=== PATIENT | male | born 1945 | race Caucasian/White ===

== ENCOUNTER 2018-11-13 21:52 | Inpatient (IN) ==
[2018-11-13] MEDS ORDERED: ONDANSETRON INJ 2 MG/ML 2 ML VIAL IV STA (22:36)
[2018-11-13] MEDS ORDERED: SODIUM CHLORIDE 0.9% 1000ML 1,000 ML IV SCH (22:45)
[2018-11-13 22:54] LABS: Basophils # (auto) 0.02 K/uL (0-0.2); Basophils % (auto) 0.3 %; Eosinophils # (auto) 0.04 K/uL (0-0.5); Eosinophils % (auto) 0.6 %; Hematocrit (blood only) 34.4 % (42-52); Hemoglobin 11.9 g/dL (14.0-18.0); Immature Granulocytes # (auto) 0.05 K/uL (0.00-0.02); Immature Granulocytes % (auto) 0.8 %; Lymphocytes # (auto) 0.36 K/uL (1.2-3.4); Lymphocytes % (auto) 5.4 %; Mean Corpuscular Hgb Conc 34.6 g/dL (32-36); Mean Corpuscular Volume 88.7 fL (80-100); Mean Platelet Volume 10.3 fL (7.4-10.4); Monocytes # (auto) 0.17 K/uL (0.11-0.59); Monocytes % (auto) 2.6 %; Neutrophils # (auto) 6.02 K/uL (1.4-6.5); Neutrophils % (auto) 90.3 %; Platelet Count 351 K/uL (130-400); RDW Coefficient of Variation 13.7 % (11.5-14.5); RDW Standard Deviation 44.8 fL (36.4-46.3); Red Blood Count 3.88 M/uL (4.7-6.1); White Blood Count 6.66 K/uL (4.8-10.8)
[2018-11-13 23:11] LABS: Alanine Aminotransferase 53 U/L (12-78); Albumin Level 2.5 gm/dl (3.4-5.0); Aspartate Aminotransferase 60 U/L (15-37); BUN Creatinine Ratio 15.2 (10-20); Blood Urea Nitrogen 15 mg/dl (7-18); Carbon Dioxide 25 mmol/L (21-32); Chloride 94 mmol/L (98-107); Creatinine Clr Calc Pharmacy 63.8 ml/min; Est GFR (African American) 84.5; Est GFR (Non-African American) 72.9; Glucose 172 mg/dl (70-99); Magnesium 2.1 mg/dl (1.8-2.4); Potassium 3.1 mmol/L (3.5-5.1); Sodium 129 mmol/L (136-145)
[2018-11-13 23:16] LABS: Albumin Globulin Ratio 0.6 (0.9-2); Alkaline Phosphatase 170 U/L (45-117); Bilirubin,Total 0.7 mg/dl (0.2-1); Globulin 4.4 gm/dl (2.5-4.0); Total Protein 6.9 gm/dl (6.4-8.2); Troponin I < 0.015 ng/ml (0-0.045)
[2018-11-13 23:41] LABS: Appearance Urine Clear (Clear); Bacteria Urine Automated Negative (Negative); Bilirubin Urine Negative (Negative); Color Urine Dark Yellow; Glucose Urine UA Negative (Negative); Ketones Urine Trace (Negative); Leukocyte Esterase Urine Negative (Negative); Nitrite Urine Negative (Negative); Protein Urine 1+ (Negative); Specific Gravity Urine 1.021 (1.000-1.030); Urobilinogen Urine Positive (Negative)
[2018-11-13] MEDS ORDERED: IOVERSOL 100ml IV PRN (23:59)
[2018-11-14 00:16] LABS: Influenza A virus by PCR Neg for Influ A (Neg); Influenza B virus by PCR Neg for Influ B (Neg)
[2018-11-14] MEDS ORDERED: SODIUM CHLORIDE 0.9% 1000ML 1,000 ML IV STA (00:43)
--- NOTE | 2018-11-14 00:51 | Emergency Department Note ---
Entered by Annel Robert acting as a scribe for Yoni Nieves MD History of Present Illness General Chief complaint: Abdominal Pain Stated complaint: pain in Ribs/back, loss of balance Time Seen by Provider: 11/13/18 22:33 Source: patient Mode of arrival: ambulatory Limitations: no limitations History of Present Illness Provider complaint: Abdominal pain Onset (ago): day(s) (a couple of days ago) Location: abdomen (upper) Radiation: non-radiation Pain Consistency: + other (worsening) Quality: + other (pain) Relieved By: + none Associated symptoms: + fever/chills, + nausea/vomiting and + other (Additional symptoms: back pain. Denies: congestion, burning urination, alcohol withdrawal symptoms); no cough The patient is a 72 year old male with a history of a prostatectomy 2 years ago who presents to the Emergency Room with complaints of worsening upper abdominal pain starting a couple of days ago. The patient reports that his pain feels like "food is stuck" in his upper abdomen. He states that his abdominal pain has been accompanied by nausea, a low-grade fever, chills, and back pain, but no cough, congestion, and burning urination. He also denies any recent sick contact. He notes that his last bowel movement was 2 days ago and that he has not eaten much today. He further reports that he normally drinks beer and wine every day but claims that he has not consumed alcohol in the past week and has not experienced any withdrawal symptoms. The patient states that he takes 80 mg Aspirin daily. He denies a history of heart attacks and abdominal surgeries. Home Medications Home Medications Medication Instructions Recorded Confirmed Type aspirin 81 mg PO DAILY 11/13/18 11/13/18 History fluticasone-salmeterol [Advair 1 puff INHALATION BID 11/13/18 11/13/18 History Diskus] ipratropium-albuterol [Combivent 1 puff INHALATION DIRECTED 11/13/18 History Respimat] rosuvastatin 10 mg PO DAILY 11/13/18 11/13/18 History Allergies Allergy/AdvReac Type Severity Reaction Status Date / Time No Known Allergies Allergy Unverified 11/13/18 22:59 Past Med/Surg History Surgical History S/P prostatectomy Social History marital status: Current Living Situation: Spouse current occupational status: retired Other Information That Helps Us Care for You: No Feels Safe at Home: Yes Safety Concerns: Feels Safe At This Time Smoking Status: Former smoker Hx Alcohol Use: Yes Alcohol type: beer and wine Alcohol Intake Frequency: 3 or more drinks per day Hx Substance Use: No Beliefs That Will Affect Care: None Preferred Language: Belarusian Communication Ability: Effective Video Effects Editor Required: No Review of Systems See HPI for pertinent positives & negatives. and A total of 10 systems reviewed and were otherwise negative Physical Exam Vital Signs Vital Signs - 24 hr 11/13/18 21:55 11/13/18 22:24 11/13/18 23:26 Temperature 37.8 C H 37.8 C H Temperature Source Oral Oral Sepsis Action Taken by Nursing No Action Required Pulse Rate 117 H 100 H Pulse Rate [Left Finger] 106 H 100 H Pulse Rhythm Regular Pulse Rhythm [Left Finger] Regular Pulse Strength [Left Finger] Normal Respiratory Rate 20 20 20 Respiratory Effort / Characteristics Non-Labored Non-Labored Non-Labored Spontaneous Respiratory Depth Normal Normal Normal Respiratory Pattern Regular Regular Blood Pressure 135/75 Blood Pressure [Left Arm] 146/73 H 135/76 Blood Pressure Mean 95 Blood Pressure Mean [Left Arm] 97 95 Blood Pressure Position [Left Arm] Sitting Pulse Oximetry 95 91 100 Oxygen Delivery Method Room Air Room Air Room Air 11/14/18 00:30 11/14/18 01:21 11/14/18 03:16 Temperature 37.4 C 36.8 C Temperature Source Oral Oral Sepsis Action Taken by Nursing Pulse Rate Pulse Rate [Left Finger] 94 H 89 80 Pulse Rhythm Pulse Rhythm [Left Finger] Regular Regular Regular Pulse Strength [Left Finger] Normal Normal Normal Respiratory Rate 20 20 18 Respiratory Effort / Characteristics Non-Labored Spontaneous Non-Labored Spontaneous Non-Labored Spontaneous Respiratory Depth Normal Normal Normal Respiratory Pattern Regular Regular Blood Pressure Blood Pressure [Left Arm] 131/66 115/67 109/57 L Blood Pressure Mean Blood Pressure Mean [Left Arm] 87 83 74 Blood Pressure Position [Left Arm] Lying Lying Pulse Oximetry 93 93 93 Oxygen Delivery Method Room Air Room Air Room Air 11/14/18 03:45 Temperature 36.6 C Temperature Source Oral Sepsis Action Taken by Nursing Pulse Rate Pulse Rate [Left Finger] 83 Pulse Rhythm Pulse Rhythm [Left Finger] Regular Pulse Strength [Left Finger] Normal Respiratory Rate 16 Respiratory Effort / Characteristics Respiratory Depth Normal Respiratory Pattern Blood Pressure Blood Pressure [Left Arm] 123/67 Blood Pressure Mean Blood Pressure Mean [Left Arm] 85 Blood Pressure Position [Left Arm] Lying Pulse Oximetry 92 Oxygen Delivery Method Room Air GENERAL: Awake, alert, fatigued, uncomfortable-appearing, in no distress HENT: Normocephalic, atraumatic. Oropharynx with dry mucous membranes and otherwise unremarkable. EYES: Normal conjunctiva. Sclera non-icteric. NECK: Supple. No nuchal rigidity. FROM. No JVD. RESPIRATORY: Clear to auscultation. CARDIAC: Tachycardic rate, normal rhythm. Extremities warm and well perfused. Pulses equal. ABDOMEN: Soft, non-distended. Mild epigastric/RUQ tenderness. +Lyons's sign. No masses. RECTAL: Deferred. MUSCULOSKELETAL: Chest examination reveals no tenderness. The back is symmetrical on inspection without obvious abnormality. There is no CVA tenderness to palpation. No joint edema. LOWER EXTREMITIES: Calves are equal size bilaterally and non-tender. No edema. No discoloration. NEURO: Normal sensorium. No sensory or motor deficits noted. SKIN: No rash or jaundice noted. Course 2305: Past medical records reviewed. The patient was evaluated in room C8, and a complete history and physical examination were performed. 0125: I reviewed the patient's case with Trace Renner. Given the patient's age, Dr. Villarreal suggests admission to medicine. Dr. Villarreal will evaluate the patient for likely cholecystitis in the morning. 0129: I reviewed the patient's case with Chetan Kirkpatrick. Dr. Mancia will evaluate the patient for further management. Consultations Consultation #1: I reviewed the patient's case with Trace Renner. Given the patient's age, Dr. Villarreal suggests admission to medicine. Dr. Villarreal will evaluate the patient for likely cholecystitis in the morning. Time: 01:25 Consultation #2: I reviewed the patient's case with Chetan Kirkpatrick. Dr. Mancia will evaluate the patient for further management. Time: 01:29 Administered Medications Potassium Chloride/Sodium Chloride (Normal Saline W/20 Meq Kcl) 20 meq in 1, 000 mls @ 60 mls/hr IV .[id number] COUNT INCLUDES THE [facility] Stop: 12/14/18 02:14 Last Infusion: 11/14/18 03:52 Dose: 60 mls/hr Admin: 11/14/18 02:39 Dose: 60 mls/hr Discontinued Medications Famotidine (Pepcid 20mg Iv Push) Confirm Administered Dose 20 mg .ROUTE .STK- MED ONE Stop: 11/14/18 02:59 Last Admin: 11/14/18 03:01 Dose: 20 mg Sodium Chloride (Nss 1000ml) 1,000 mls @ 999 mls/hr IV .Q1H1M COUNT INCLUDES THE [facility] Stop: 11/13/18 23:45 Last Infusion: 11/14/18 00:20 Dose: 0 mls/hr Admin: 11/13/18 23:17 Dose: 999 mls/hr Sodium Chloride (Nss 1000ml) 1,000 mls @ 125 mls/hr IV .Q8H STA Stop: 11/14/18 08:42 Last Infusion: 11/14/18 03:52 Dose: 0 mls/hr Admin: 11/14/18 00:53 Dose: 125 mls/hr Metronidazole (Flagyl) 500 mg in 100 mls @ 100 mls/hr IV NOW STA Stop: 11/14/18 02:26 Last Infusion: 11/14/18 03:52 Dose: 0 mls/hr Admin: 11/14/18 02:39 Dose: 100 mls/hr Ceftriaxone Sodium (Rocephin) 1,000 mg in 50 mls @ 100 mls/hr IV NOW STA Stop: 11/14/18 01:56 Last Infusion: 11/14/18 02:40 Dose: 0 mls/hr Admin: 11/14/18 02:10 Dose: 100 mls/hr Ioversol (Optiray 320 100ml) 90 ml IV ONCE PRN PRN Reason: Interaction Checking Stop: 11/17/18 23:58 Last Admin: 11/13/18 23:59 Dose: 1 ml Ondansetron HCl (Zofran) 4 mg IV NOW STA Stop: 11/13/18 22:37 Last Admin: 11/13/18 23:17 Dose: 4 mg Potassium Chloride (Klor-Con M20) 40 meq PO NOW STA Stop: 11/14/18 02:11 Last Admin: 11/14/18 02:39 Dose: 40 meq Medical Decision Making Differential Diagnosis Differential diagnosis: Etiologies such as appendicitis, diverticulitis, PUD, biliary pathology, UTI, pancreatitis, obstruction, mesenteric ischemia, aortic pathology, infections, inflammatory bowel disease, renal colic, as well as others were entertained. Medical Records Attestation: I reviewed the patient's medical records. Home Medications Current Medication List: was personally reviewed by me Laboratory Data Attestation: I reviewed the patient's lab results. Result diagrams: 11/13/18 22:20 11/13/18 22:20 Lab Results 11/13/18 11/13/18 11/13/18 Range/Units 22:20 22:20 22:26 WBC 6.66 (4.8-10.8) K/uL RBC 3.88 L (4.7-6.1) M/uL Hgb 11.9 L (14.0-18.0) g/dL Hct 34.4 L (42-52) % MCV 88.7 (80-100) fL MCH 30.7 (25-34) pg MCHC 34.6 (32-36) g/dL RDW Std Deviation 44.8 (36.4-46.3) fL RDW Coeff of Pavel 13.7 (11.5-14.5) % Plt Count 351 (130-400) K/uL MPV 10.3 (7.4-10.4) fL Immature Gran % (Auto) 0.8 % Neut % (Auto) 90.3 % Lymph % (Auto) 5.4 % [place] % (Auto) 2.6 % Eos % (Auto) 0.6 % Baso % (Auto) 0.3 % Immature Gran # (Auto) 0.05 H (0.00-0.02) K/uL Neut # (Auto) 6.02 (1.4-6.5) K/uL Lymph # (Auto) 0.36 L (1.2-3.4) K/uL [place] # (Auto) 0.17 (0.11-0.59) K/uL Eos # (Auto) 0.04 (0-0.5) K/uL Baso # (Auto) 0.02 (0-0.2) K/uL Sodium 129 L (136-145) mmol/L Potassium 3.1 L (3.5-5.1) mmol/L Chloride 94 L (98-107) mmol/L Carbon Dioxide 25 (21-32) mmol/L Anion Gap 10.0 (3-11) BUN 15 (7-18) mg/dl Creatinine 1.01 (0.6-1.4) mg/dl Est Cr Clr Drug Dosing 63.8 ml/min Est GFR ( Amer) 84.5 Est GFR (Non-Af Amer) 72.9 BUN/Creatinine Ratio 15.2 (10-20) Glucose 172 H (70-99) mg/dl Osmolality 275 L (280-300) mOsm/kg Calcium 8.0 L (8.5-10.1) mg/dl Magnesium 2.1 (1.8-2.4) mg/dl Total Bilirubin 0.7 (0.2-1) mg/dl Direct Bilirubin 0.3 H (0-0.2) mg/dl AST 60 H (15-37) U/L ALT 53 (12-78) U/L Alkaline Phosphatase 170 H (45-117) U/L Troponin I < 0.015 (0-0.045) ng/ml Total Protein 6.9 (6.4-8.2) gm/dl Albumin 2.5 L (3.4-5.0) gm/dl Globulin 4.4 H (2.5-4.0) gm/dl Albumin/Globulin Ratio 0.6 L (0.9-2) Lipase 417 H (73-393) U/L TSH 1.480 (0.300-4.500) uIu/ml Urine Color Urine Appearance (Clear) Urine pH (4.5-7.5) Ur Specific [place] (1.000-1.030) Urine Protein (Negative) Urine Glucose (UA) (Negative) Urine Ketones (Negative) Urine Blood (Negative) Urine Nitrite (Negative) Urine Bilirubin (Negative) Urine Urobilinogen (Negative) Ur Leukocyte Esterase (Negative) Urine WBC (Auto) (0-5) /hpf Urine RBC (Auto) (0-4) /hpf U Hyaline Cast (Auto) (0-5) /lpf U Epithel Cells (Auto) (0-5) /lpf Urine Bacteria (Auto) (Negative) Influenza Type A (PCR) (Neg) Influenza Type B (PCR) (Neg) 11/13/18 11/13/18 Range/Units 23:12 23:20 WBC (4.8-10.8) K/uL RBC (4.7-6.1) M/uL Hgb (14.0-18.0) g/dL Hct (42-52) % MCV (80-100) fL MCH (25-34) pg MCHC (32-36) g/dL RDW Std Deviation (36.4-46.3) fL RDW Coeff of Pavel (11.5-14.5) % Plt Count (130-400) K/uL MPV (7.4-10.4) fL Immature Gran % (Auto) % Neut % (Auto) % Lymph % (Auto) % [place] % (Auto) % Eos % (Auto) % Baso % (Auto) % Immature Gran # (Auto) (0.00-0.02) K/uL Neut # (Auto) (1.4-6.5) K/uL Lymph # (Auto) (1.2-3.4) K/uL [place] # (Auto) (0.11-0.59) K/uL Eos # (Auto) (0-0.5) K/uL Baso # (Auto) (0-0.2) K/uL Sodium (136-145) mmol/L Potassium (3.5-5.1) mmol/L Chloride (98-107) mmol/L Carbon Dioxide (21-32) mmol/L Anion Gap (3-11) BUN (7-18) mg/dl Creatinine (0.6-1.4) mg/dl Est Cr Clr Drug Dosing ml/min Est GFR ( Amer) Est GFR (Non-Af Amer) BUN/Creatinine Ratio (10-20) Glucose (70-99) mg/dl Osmolality (280-300) mOsm/kg Calcium (8.5-10.1) mg/dl Magnesium (1.8-2.4) mg/dl Total Bilirubin (0.2-1) mg/dl Direct Bilirubin (0-0.2) mg/dl AST (15-37) U/L ALT (12-78) U/L Alkaline Phosphatase (45-117) U/L Troponin I (0-0.045) ng/ml Total Protein (6.4-8.2) gm/dl Albumin (3.4-5.0) gm/dl Globulin (2.5-4.0) gm/dl Albumin/Globulin Ratio (0.9-2) Lipase (73-393) U/L TSH (0.300-4.500) uIu/ml Urine Color Dark Yellow Urine Appearance Clear (Clear) Urine pH 5.0 (4.5-7.5) Ur Specific [place] 1.021 (1.000-1.030) Urine Protein 1+ H (Negative) Urine Glucose (UA) Negative (Negative) Urine Ketones Trace H (Negative) Urine Blood Negative (Negative) Urine Nitrite Negative (Negative) Urine Bilirubin Negative (Negative) Urine Urobilinogen Positive H (Negative) Ur Leukocyte Esterase Negative (Negative) Urine WBC (Auto) 1-5 (0-5) /hpf Urine RBC (Auto) 0-4 (0-4) /hpf U Hyaline Cast (Auto) 1-5 (0-5) /lpf U Epithel Cells (Auto) 10-20 H (0-5) /lpf Urine Bacteria (Auto) Negative (Negative) Influenza Type A (PCR) Neg for Influ A (Neg) Influenza Type B (PCR) Neg for Influ B (Neg) Imaging Data Attestation: I personally reviewed and interpreted this imaging study as follows : My Impression: XR CHEST 1V Findings: No gross infiltrates. Normal mediastinum. Radiologist's Impression: Radiology results as stated below per my review and the radiologist's interpretation: STATRAD: Preliminary Findings Only See Final Report For Complete Findings CT ABDOMEN & PELVIS With Contrast: Prominent distention of the gallbladder with wall thickening and severe surrounding inflammatory changes. Findings are concerning for acute cholecystitis. Ultrasound could further characterize if indicated. No evidence for common bile duct dilation. Colonic diverticulosis. Wall thickening at the hepatic flexure favored to be related to the aforementioned gallbladder inflammation. No evidence for appendicitis. No evidence for bowel obstruction. Degenerative/chronic osseous changes. Lower lung atelectasis. Atherosclerosis of multivessel coronary artery calcifications. Fatty inguinal hernias. Radiologist: Ambrose Wilkinson MD Study ready at 00:16 and initial results transmitted at 00:30 Critical Value Communications Clear Time Type Notes 11/14/18 00:34 Verify Receipt Verified receipt with Er Maame for Dr. Nieves on 11/14 00:34 (-05:00) ---- Preliminary Findings Only See Final Report For Complete Findings US GALLBLADDER: Cholelithiasis with moderate distention of the gallbladder and wall thickening to 5 mm as well as pericholecystic fluid. Sonographic Lyons sign was present. Findings consistent with acute cholecystitis. Common bile duct caliber is borderline dilated at 8 mm. Hepatic steatosis. Pancreas obscured. No acute findings regarding the visualized right kidney. Radiologist: Ambrose Wilkinson MD Study ready at 01:14 and initial results transmitted at 01:25 ECG Data Attestation: I personally reviewed and interpreted this ECG as follows: Indication: abdominal pain Rate (beats per minute): 98 Rhythm: normal sinus Findings: + LAFB; no acute ischemic change Comparison ECG Date: from (01/15/12) Change: no significant change Blood Pressure Blood Pressure Findings: Normal blood pressure MDM Narrative The patient is a pleasant 72-year-old gentleman who presents emergency department with 2 days of worsening upper abdominal pain with nausea and feverishness per hpi. On arrival patient is uncomfortable but no acute distress , temp of 37.8, heart rate 110s, vital signs otherwise stable. On exam the patient has mild epigastric tenderness without peritoneal signs. EKG without acute ischemia. CXR unremarkable per my reivew. WBC within normal limits. Sodium 129. Troponin negative. Flu negative. CT abdomen pelvis with gallbladder wall thickening and severe surrounding inflammatory changes that are concerning for acute cholecystitis per preliminary stat read read. However recommend ultrasound for further characterization. Right upper quadrant ultrasound further confirms cholecystitis per preliminary stat read with cholelithiasis with moderate distention of the gallbladder and wall thickening to 5 mm with associated pericholecystic fluid and positive sonographic Lyons sign. Case was discussed with Dr. Villarreal, general surgery on-call, who recommends admission to medicine given the patient's age however he will plan to perform cholecystectomy in the morning. Agrees with ceftriaxone and Flagyl at this time. Case was discussed with Dr. Mancia, [facility] hospitalist, who will evaluate the patient for admission. Impression & Plan Acute cholecystitis Discharge Plan Visit Data *Final* Discharge Date/Time: 11/14/18 03:26 Chief Complaint: Abdominal Pain Stated Complaint: pain in Ribs/back, loss of balance ED Provider: Yoni Nieves Discharge Problem: Acute cholecystitis Patient Disposition: Admitted As Inpatient Discharge Instructions Interventions: ED Discharge Assessment Last Done: 11/14/18 03:26 The scribe's documentation has been prepared under my direction and personally reviewed by me in its entirety. I confirm that the note above accurately reflects all work, treatment, procedures, and medical decision making performed by me.
[2018-11-14 00:58] LABS: Bilirubin Direct 0.3 mg/dl (0-0.2)
[2018-11-14] MEDS ORDERED: metroNIDAZOLE 500 MG/100 ML BAG IV STA (01:27)
[2018-11-14] MEDS ORDERED: cefTRIAXone SODIUM 1,000 MG/50 ML BAG IV STA (01:27)
[2018-11-14] MEDS ORDERED: POTASSIUM CHLORIDE 20 MEQ TABCR PO STA (02:10)
[2018-11-14] MEDS: NSS + 20MEQ KCL 20 MEQ/1,000 ML BAG IV SCH ×2 (02:39→18:40)
[2018-11-14] MEDS ORDERED: FAMOTIDINE 20MG/5ML IV PUSH IV STA (02:54)
--- NOTE | 2018-11-14 02:54 | History & Physical Report ---
Date of Service November 14, 2018 Assessment & Plan (1) Acute cholecystitis: Sepsis Hyponatremia, hypokalemia secondary to above Constipation Hyperglycemia rule out DM Bronchial asthma, stable History of prostatic cancer as per surgery Past tobacco abuse Anemia, possibly chronic Patient gives history of episodic anemia on previous outpatient blood work. Unknown baseline GMF IV Unasyn Surgery consult RE cholecystitis (ER provider already in touch with Dr. Villarreal who is contemplating surgery in a.m.) IVF, replace potassium Bowel regimen Check hemoglobin A1C Anemia workup DVT prophylaxis SCDs (Recommend pharmacologic anticoagulation with Lovenox 40 mg subcutaneous daily once bleeding risk is deemed to be minimal and negligible pending surgery evaluation and negative stool Hemoccult test.) Full code Present on Admission?: Yes History of Present Illness Chief Complaint: Abdominal pain Primary Care Provider: Lavelle Dia History obtained from patient and records. Medical history significant for prostate cancer status post surgery, asthma, past tobacco abuse. Recent ER visit 2011 for near syncope. 1 week history of achy epigastric discomfort going around the belly with nausea , intermittent symptoms, worsened by food intake, low-grade fever at home. Constipation symptoms also noted. No chest pain, no S OB. At the ER, patient received Ceftriaxone and Flagyl for cholecystitis. 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 Allergies Allergy/AdvReac Type Severity Reaction Status Date / Time No Known Allergies Allergy Unverified 11/13/18 22:59 Home Medications Home Medications Medication Instructions Recorded Confirmed Type aspirin 81 mg PO DAILY 11/13/18 11/13/18 History fluticasone-salmeterol [Advair 1 puff INHALATION BID 11/13/18 11/13/18 History Diskus] ipratropium-albuterol [Combivent 1 puff INHALATION DIRECTED 11/13/18 History Respimat] rosuvastatin 10 mg PO DAILY 11/13/18 11/13/18 History Past Med/Surg History Surgical History S/P prostatectomy Social History marital status: Current Living Situation: Spouse current occupational status: retired Other Information That Helps Us Care for You: No Feels Safe at Home: Yes Safety Concerns: Feels Safe At This Time Smoking Status: Former smoker Hx Alcohol Use: Yes Alcohol type: beer and wine Alcohol Intake Frequency: 3 or more drinks per day Hx Substance Use: No Beliefs That Will Affect Care: None Preferred Language: Montenegrin Communication Ability: Effective Clinical Appeals Reviewer Required: No Review of Systems As per HPI, all 10 systems reviewed, all other ROS negative Physical Exam 2 Vital Signs (Past 24 Hours): Last Vital Signs Temp 36.8 C 11/14/18 01:21 Pulse 89 11/14/18 01:21 Resp 20 11/14/18 01:21 BP 115/67 11/14/18 01:21 Pulse Ox 93 11/14/18 01:21 Physical Exam: GENERAL: Comfortable, pleasant, no respiratory distress, obese SKIN: Pallor , warm HEENT: Alopecia, bespectacled, pink palpebral conjunctivae, no ptosis, dry buccal mucosa NECK : Supple, short, no tenderness CHEST : CTA, no tenderness HEART : RRR, no obvious murmurs ABDOMEN: Some distention, right upper quadrant tenderness EXTREMITIES : No LE swelling, no LE tenderness, no other conspicuous deformities noted NEUROLOGIC : Coherent, no facial asymmetry, no other gross focality Results & Data Laboratory Results Laboratory Results WBC 6.66 K/uL (4.8-10.8) 11/13/18 22:20 RBC 3.88 M/uL (4.7-6.1) L 11/13/18 22:20 Hgb 11.9 g/dL (14.0-18.0) L 11/13/18 22:20 Hct 34.4 % (42-52) L 11/13/18 22:20 MCV 88.7 fL (80-100) 11/13/18 22:20 MCH 30.7 pg (25-34) 11/13/18 22:20 MCHC 34.6 g/dL (32-36) 11/13/18 22:20 RDW Std Deviation 44.8 fL (36.4-46.3) 11/13/18 22:20 RDW Coeff of Pavel 13.7 % (11.5-14.5) 11/13/18 22:20 Plt Count 351 K/uL (130-400) 11/13/18 22:20 MPV 10.3 fL (7.4-10.4) 11/13/18 22:20 Immature Gran % (Auto) 0.8 % 11/13/18 22:20 Neut % (Auto) 90.3 % 11/13/18 22:20 Lymph % (Auto) 5.4 % 11/13/18 22:20 [place] % (Auto) 2.6 % 11/13/18 22:20 Eos % (Auto) 0.6 % 11/13/18 22:20 Baso % (Auto) 0.3 % 11/13/18 22:20 Immature Gran # (Auto) 0.05 K/uL (0.00-0.02) H 11/13/18 22:20 Neut # (Auto) 6.02 K/uL (1.4-6.5) 11/13/18 22:20 Lymph # (Auto) 0.36 K/uL (1.2-3.4) L 11/13/18 22:20 [place] # (Auto) 0.17 K/uL (0.11-0.59) 11/13/18 22:20 Eos # (Auto) 0.04 K/uL (0-0.5) 11/13/18 22:20 Baso # (Auto) 0.02 K/uL (0-0.2) 11/13/18 22:20 Sodium 129 mmol/L (136-145) L 11/13/18 22:20 Potassium 3.1 mmol/L (3.5-5.1) L 11/13/18 22:20 Chloride 94 mmol/L (98-107) L 11/13/18 22:20 Carbon Dioxide 25 mmol/L (21-32) 11/13/18 22:20 Anion Gap 10.0 (3-11) 11/13/18 22:20 BUN 15 mg/dl (7-18) 11/13/18 22:20 Creatinine 1.01 mg/dl (0.6-1.4) 11/13/18 22:20 Est Cr Clr Drug Dosing 63.8 ml/min 11/13/18 22:20 Est GFR ( Amer) 84.5 11/13/18 22:20 Est GFR (Non-Af Amer) 72.9 11/13/18 22:20 BUN/Creatinine Ratio 15.2 (10-20) 11/13/18 22:20 Glucose 172 mg/dl (70-99) H 11/13/18 22:20 Calcium 8.0 mg/dl (8.5-10.1) L 11/13/18 22:20 Magnesium 2.1 mg/dl (1.8-2.4) 11/13/18 22:20 Total Bilirubin 0.7 mg/dl (0.2-1) 11/13/18 22:20 Direct Bilirubin 0.3 mg/dl (0-0.2) H 11/13/18 22:20 AST 60 U/L (15-37) H 11/13/18 22:20 ALT 53 U/L (12-78) 11/13/18 22:20 Alkaline Phosphatase 170 U/L (45-117) H 11/13/18 22:20 Troponin I < 0.015 ng/ml (0-0.045) 11/13/18 22:20 Total Protein 6.9 gm/dl (6.4-8.2) 11/13/18 22:20 Albumin 2.5 gm/dl (3.4-5.0) L 11/13/18 22:20 Globulin 4.4 gm/dl (2.5-4.0) H 11/13/18 22:20 Albumin/Globulin Ratio 0.6 (0.9-2) L 11/13/18 22:20 Lipase 417 U/L (73-393) H 11/13/18 22:20 TSH 1.480 uIu/ml (0.300-4.500) 11/13/18 22:20 Urine Color Dark Yellow 11/13/18 23:12 Urine Appearance Clear (Clear) 11/13/18 23:12 Urine pH 5.0 (4.5-7.5) 11/13/18 23:12 Ur Specific [place] 1.021 (1.000-1.030) 11/13/18 23:12 Urine Protein 1+ (Negative) H 11/13/18 23:12 Urine Glucose (UA) Negative (Negative) 11/13/18 23:12 Urine Ketones Trace (Negative) H 11/13/18 23:12 Urine Blood Negative (Negative) 11/13/18 23:12 Urine Nitrite Negative (Negative) 11/13/18 23:12 Urine Bilirubin Negative (Negative) 11/13/18 23:12 Urine Urobilinogen Positive (Negative) H 11/13/18 23:12 Ur Leukocyte Esterase Negative (Negative) 11/13/18 23:12 Urine WBC (Auto) 1-5 /hpf (0-5) 11/13/18 23:12 Urine RBC (Auto) 0-4 /hpf (0-4) 11/13/18 23:12 U Hyaline Cast (Auto) 1-5 /lpf (0-5) 11/13/18 23:12 U Epithel Cells (Auto) 10-20 /lpf (0-5) H 11/13/18 23:12 Urine Bacteria (Auto) Negative (Negative) 11/13/18 23:12 Influenza Type A (PCR) Neg for Influ A (Neg) 11/13/18 23:20 Influenza Type B (PCR) Neg for Influ B (Neg) 11/13/18 23:20 Diagnostic Findings Chest x-ray: No acute cardiopulmonary abnormality CT abdomen pelvis: 1. Findings are consistent with severe acute cholecystitis. Small gallstones are suggested. 2. Wall thickening of the duodenum is likely related to adjacent cholecystitis. 3. Mild to moderate colonic diverticulosis without CT evidence of acute diverticulitis. Right upper quadrant ultrasound: 1. Cholelithiasis with evidence of acute cholecystitis. 2. There is no intrahepatic biliary ductal dilatation. EKG as per my interpretation rate 100, NSR, LAD, LAFB, PRWP
[2018-11-14] MEDS ORDERED: FAMOTIDINE 20MG/5ML IV PUSH ONE (02:58)
[2018-11-14] MEDS ORDERED: MoRPHine SULFATE 4 MG/ML 1 ML CARP\\VIAL IV PRN ×2 (03:41→17:46)
[2018-11-14] MEDS ORDERED: ACETAMINOPHEN 325 MG TAB PO PRN (03:41)
[2018-11-14] MEDS ORDERED: IPRATROPIUM BROMIDE NEB SOLN 0.02% 2.5 ML VIAL INH PRN (03:41)
[2018-11-14] MEDS ORDERED: LORazepam 0.25 MG/0.5 ML VIAL IV PRN (03:41)
[2018-11-14] MEDS ORDERED: XOPENEX/ATROVENT 1.25mg/0.5MG NEB COMBO NEB PRN (03:41)
[2018-11-14] MEDS ORDERED: POLYETHYLENE (MIRALAX) 17 GM PACK PO PRN (03:41)
[2018-11-14] MEDS ORDERED: LEVALBUTEROL 1.25MG/0.5ML NEB INH PRN (03:41)
[2018-11-14] MEDS ORDERED: OXYCODONE HCL IR 5 MG TAB (IMMEDIATE RELEASE) PO PRN (03:41)
[2018-11-14] MEDS ORDERED: PROCHLORPERAZINE 5 MG in SYRINGE 4 ML IV PRN (03:41)
[2018-11-14] MEDS: DOCUSATE SODIUM/SENNA 50/8.6MG TAB PO SCH (05:15)
[2018-11-14 05:19] LABS: Basophils # (auto) 0.03 K/uL (0-0.2); Basophils % (auto) 0.3 %; Eosinophils # (auto) 0.04 K/uL (0-0.5); Eosinophils % (auto) 0.4 %; Hematocrit (blood only) 33.6 % (42-52); Hemoglobin 11.7 g/dL (14.0-18.0); Immature Granulocytes # (auto) 0.05 K/uL (0.00-0.02); Immature Granulocytes % (auto) 0.5 %; Lymphocytes # (auto) 0.78 K/uL (1.2-3.4); Lymphocytes % (auto) 7.5 %; Mean Corpuscular Hgb Conc 34.8 g/dL (32-36); Mean Corpuscular Volume 89.4 fL (80-100); Monocytes % (auto) 7.7 %; Neutrophils # (auto) 8.71 K/uL (1.4-6.5); Neutrophils % (auto) 83.6 %; Platelet Count 353 K/uL (130-400); RDW Coefficient of Variation 13.9 % (11.5-14.5); Red Blood Count 3.76 M/uL (4.7-6.1); Reticulocyte % 1.5 % (0.5-2.0); Reticulocytes # 0.06 10^6/uL (0.02-0.10); White Blood Count 10.41 K/uL (4.8-10.8)
[2018-11-14 05:39] LABS: Albumin Level 2.4 gm/dl (3.4-5.0); BUN Creatinine Ratio 13.9 (10-20); Calcium 7.9 mg/dl (8.5-10.1); Creatinine Clr Calc Pharmacy 83.1 ml/min; Potassium 3.4 mmol/L (3.5-5.1)
[2018-11-14 05:45] LABS: Albumin Globulin Ratio 0.6 (0.9-2); Bilirubin,Total 0.7 mg/dl (0.2-1); Ferritin 542.4 ng/ml (8-388); Globulin 4.1 gm/dl (2.5-4.0); Total Protein 6.5 gm/dl (6.4-8.2)
[2018-11-14] MEDS ORDERED: AMPICILLIN/SULBACTAM CONSULT ACTIVE PRN (06:25)
[2018-11-14] MEDS: AMPICILLIN/SULBACTAM SOD 3,000 MG in 0.9 % SODIUM CHLORIDE 100 ML IV SCH ×3 (08:16→20:11)
[2018-11-14] MEDS: FLUTICASONE/SALMETEROL 100/50 (ADVAIR) 14 PUFF/1 INHALER INH SCH ×2 (08:20→20:10)
--- NOTE | 2018-11-14 08:43 | CT Scan Report ---
CT SCAN OF THE ABDOMEN AND PELVIS WITH IV CONTRAST CLINICAL HISTORY: Upper abdominal pain. Fever. COMPARISON STUDY: No priors. TECHNIQUE: Following the IV administration of 90 cc of Optiray 320, CT scan of the abdomen and pelvi s is performed from the lung bases to the proximal femora. Images are reviewed in the axial, sagittal , and coronal planes. IV contrast was administered without complication. A dose lowering technique wa s utilized adhering to the principles of ALARA. CT DOSE: 487.30 mGy.cm FINDINGS: Lung bases: The heart is top normal in size and without pericardial effusion. The coronary arteries a re densely calcified. There is bibasilar scarring/atelectasis, with mild elevation of the right hemid iaphragm. No airspace consolidation is seen typical for pneumonia and no pleural effusion is identifi ed. There is a small hiatal hernia. Liver: The contrast-enhanced liver is normal in size, contour, and attenuation. There is no intrahepa tic biliary ductal dilatation. The hepatic veins and portal veins are patent. Gallbladder: The gallbladder is distended. The gallbladder wall thickening is thickened and hyperemic , and there is marked pericholecystic inflammatory change and trace fluid. No organized fluid collect ion is identified. Scattered hyperdensities within the gallbladder likely represent small gallstones. The common bile duct is normal in caliber. Spleen: Normal in size and attenuation. Pancreas: Mildly atrophic and grossly unremarkable. Adrenal glands: Unremarkable. Kidneys: The contrast enhanced kidneys demonstrate mild cortical atrophy and are without hydronephros is. The kidneys enhance symmetrically. Abdominal vasculature: The abdominal aorta is normal in course and caliber noting moderate to advance d atherosclerotic calcification. Bowel: There is mild to moderate colonic diverticulosis without CT evidence of acute diverticulitis. No bowel obstruction is seen. There is wall thickening of the distal stomach and duodenum, likely rel ated to adjacent cholecystitis. The appendix is well-visualized and normal. Peritoneum: There is no intraperitoneal free air or abdominal ascites. Lymphadenopathy: Prominent chris hepatic and portacaval nodes measure up to 15 mm in short axis. Thes e are likely on a reactive basis. Pelvic viscera: The prostate gland is surgically absent. The bladder is mildly distended and grossly unremarkable. There is a large fat-containing left inguinal hernia. Skeletal structures: The skeletal structures are osteopenic. There is mild lumbosacral spondylosis. N o lytic or blastic lesions are seen. IMPRESSION: 1. Findings are consistent with severe acute cholecystitis. Small gallstones are suggested. 2. Wall thickening of the duodenum is likely related to adjacent cholecystitis. 3. Mild to moderate colonic diverticulosis without CT evidence of acute diverticulitis. 4. Additional findings as above. Electronically signed by: Basilio Iniguez M.D. 11/14/2018 8:42 AM
[2018-11-14 08:44] LABS: Folate (Folic Acid) 8.85 ng/ml (>5.38)
--- NOTE | 2018-11-14 08:45 | Ultrasound Report ---
ULTRASOUND RIGHT UPPER QUADRANT ABDOMEN CLINICAL HISTORY: Upper abdominal pain. Fever. Cholecystitis. COMPARISON STUDY: Abdominal CT dated 11/14/2018. TECHNIQUE: Real-time, grayscale, and color flow sonography of the right upper quadrant of the abdomen was performed. Images are reviewed in the transverse and longitudinal planes. FINDINGS: Liver: The liver is normal in top size and slightly heterogeneous in echotexture. There is no intrahe patic biliary ductal dilatation. The main portal vein is patent. Gallbladder: The gallbladder is distended measuring up to 12 cm. The gallbladder wall is thickened, m easuring up to 0.5 cm. Pericholecystic fluid is noted and a sonographic Lyons's sign is reportedly p resent. There are small gallstones and biliary sludge. The common bile duct measures up to 0.8 cm in diameter. Pancreas: Not well visualized due to overlying bowel gas. Right kidney: Survey images of the right kidney demonstrate mild cortical atrophy. There is no hydron ephrosis. Ascites: None. IMPRESSION: 1. Cholelithiasis with evidence of acute cholecystitis. 2. There is no intrahepatic biliary ductal dilatation. Electronically signed by: Basilio Iniguez M.D. 11/14/2018 8:44 AM
--- NOTE | 2018-11-14 08:51 | Surgery Consultation ---
Date of Consultation November 14, 2018 Assessment & Plan (1) Acute cholecystitis: 72-year-old male possible cholecystitis Will plan for Laparoscopic Cholecystectomy, Possible Open Cholecystectomy, Possible Cholangiogram in OR today with Dr. Villarreal. Risks of surgery reviewed and discussed with patient. IVF IV abx SCD Patient NPO. All questions answered. as above. pain improved now. has been having intermittent RUQ/right flank and back pain for sometime. +nausea. clinically c/w cholecystitis. discussed options /risks ( bleeding/infection/dvt/pe/mi/cva/injury to an organ, bile leaks etc...questions answered. will redraw LFT's now to see if cholangiogram indicated. will proceed with lap joselin/poss cholangiogram joseph History of Present Illness Reason for Consultation: Acute Cholecystitis Attending Physician: Tosha Cline, History of Present Illness Mr. Cool is a 72-year-old male with past medical history significant for asthma , history of prostatectomy 2 years ago at [place] who presents to [facility] for evaluation of abdominal pain x 1 week. Patient states that he had been having upper abdominal pain- pain that radiated from upper right quadrant into his back. He reports that the pain was much improved on Thursday, but returned yesterday evening. He reports that his last meal was yesterday evening and it was Vietnamese Wedding Soup. He denies having abdominal pain like this before. He reports associated nausea, fever, and chills. He states that he has not been hungry throughout the last week. He reports that his last bowel movement was 2 days ago. Last colonoscopy was 5-7 years ago- reports that it was fine, no abnormalities. Past surgical history includes prostatectomy, multiple orthopedic surgeries. No known allergies. Patient denies cardiac history. Denies family history of gallbladder issues. ED course- Patient had elevated temp when he first presented at 37.8 C Labwork- WBC within normal limits; Tot Bili 0.7; Direct Bili 0.3; AST 60; ALT 53 ; Alk Phos 170. Troponin negative. CT abdomen/pelvis- concerning for acute cholecystitis. GB ultrasound- cholecystitis, cholelithiasis, mod distention of GB. Allergies Allergy/AdvReac Type Severity Reaction Status Date / Time No Known Allergies Allergy Unverified 11/13/18 22:59 Home Medications Home Medications Medication Instructions Recorded Confirmed Type aspirin 81 mg PO DAILY 11/13/18 11/13/18 History fluticasone-salmeterol [Advair 1 puff INHALATION BID 11/13/18 11/13/18 History Diskus] ipratropium-albuterol [Combivent 1 puff INHALATION DIRECTED 11/13/18 History Respimat] rosuvastatin 10 mg PO DAILY 11/13/18 11/13/18 History Patient History Surgical History S/P prostatectomy Social History marital status: Current Living Situation: Spouse current occupational status: retired Other Information That Helps Us Care for You: No Feels Safe at Home: Yes Safety Concerns: Feels Safe At This Time Smoking Status: Former smoker Hx Alcohol Use: Yes Alcohol type: beer and wine Alcohol Intake Frequency: 3 or more drinks per day Hx Substance Use: No Beliefs That Will Affect Care: None Preferred Language: Hebrew Communication Ability: Effective 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
[2018-11-14] MEDS ORDERED: CONSULT PHARMACY PRN (09:00)
--- NOTE | 2018-11-14 09:53 | History & Physical Bridge Note ---
Date of Service November 14, 2018 History & Physical Bridge Note I have examined the patient, reviewed the History & Physical and in the interval since the performance of the History & Physical I have noted the following changes of clinical significance: no changes noted
[2018-11-14 10:27] LABS: Albumin Level 2.3 gm/dl (3.4-5.0); Bilirubin Direct 0.4 mg/dl (0-0.2); Bilirubin,Total 0.8 mg/dl (0.2-1); Total Protein 6.5 gm/dl (6.4-8.2)
--- NOTE | 2018-11-14 11:53 | XRay Report ---
SINGLE VIEW CHEST CLINICAL HISTORY: Generalized abdominal pain. FINDINGS: An AP, portable, upright chest radiograph is compared to study dated 01/15/2012. The examinat ion is degraded by portable technique, apical lordotic positioning, and patient rotation. The heart is top normal for projection and there is mild atherosclerotic calcification of the thoracic aorta. T he mediastinal contour is within normal limits. There is mild elevation of right hemidiaphragm and bi basilar atelectasis. No airspace consolidation or large pleural effusion is identified. No pneumothor ax is seen. The skeletal structures are osteopenic. The bony thorax is grossly intact. IMPRESSION: No acute cardiopulmonary abnormality. Electronically signed by: Basilio Iniguez M.D. 11/14/2018 11:51 AM
[2018-11-14] MEDS ORDERED: PROPOFOL IV EMULSION 10 MG/ML 20 ML VIAL IV ONE (14:27)
[2018-11-14] MEDS ORDERED: LIDOCAINE HCL 2% 2 ML VIAL/AMP(20MG/ML) INFIL ONE (14:27)
[2018-11-14] MEDS ORDERED: fentaNYL citrate 100 MCG/2 ML VIAL ONE ×3 (14:30→16:30)
[2018-11-14] MEDS ORDERED: SUCCINYLCHOLINE 100MG/5ML SYR ONE (14:30)
[2018-11-14] MEDS ORDERED: BUPIVACAINE/EPINEPHRINE 0.5% MPF 1:200,000 30 ML VIAL ONE (14:34)
--- NOTE | 2018-11-14 14:39 | Anesthesiology Consultation ---
Date of Service November 14, 2018 Assessment & Plan (1) Encounter for pre-operative examination: Chart Review Chart Review: Acceptable Risk for Surgery NPO Date Last Intake of Fluids: 11/13/18 Time Last Intake of Fluids: 19:00 Date Last Intake of Solids: 11/14/18 Time Last Intake of Solids: 04:40 History Surgery Operation Date: 11/14/18 12:00 Proposed Procedures p Laparoscopic Cholecystectomy - Dominic Villarreal DO Height/Weight Height: 5 ft 6 in Weight: 85.5 kg Allergies Allergy/AdvReac Type Severity Reaction Status Date / Time No Known Allergies Allergy Unverified 11/13/18 22:59 Medications Home Medications Medication Instructions Recorded Confirmed Last Taken aspirin 81 mg PO DAILY 11/13/18 11/13/18 Unknown fluticasone-salmeterol [Advair 1 puff INHALATION BID 11/13/18 11/13/18 Unknown Diskus] ipratropium-albuterol [Combivent 1 puff INHALATION DIRECTED 11/13/18 Unknown Respimat] rosuvastatin 10 mg PO DAILY 11/13/18 11/13/18 Unknown Active Medications Generic Name Dose Route Start Last Admin Trade Name Freq PRN Reason Stop Dose Admin Potassium Chloride/Sodium Chloride 20 meq in 1,000 mls @ 60 mls/hr 11/14/18 02 :15 11/14/18 13:50 Normal Saline W/20 Meq Kcl IV 12/14/18 02:14 0 mls/hr .[id number] ESTHER Infusion Ampicillin Sodium/Sulbactam 108 mls @ 216 mls/hr 11/14/18 08:00 11/14/18 14: 24 Sodium 3,000 mg/ Sodium IV 11/24/18 07:59 Infused Chloride Q6H ESTHER Infusion Protocol Fluticasone/Salmeterol 1 puffs 11/14/18 09:00 11/14/18 08:20 Advair Diskus 100/50 INH 12/14/18 08:59 1 puffs BID ESTHER Administration Senna/Docusate Sodium 1 tab 11/14/18 03:41 11/14/18 05:15 Senokot S PO 12/14/18 03:40 1 tab QAM ESTHER Administration Past Medical History Medical History Asthma Past Surgical History Surgical History S/P prostatectomy Social History Smoking Status: Former smoker Hx Alcohol Use: Yes Alcohol type: beer and wine alcohol intake frequency: 3 or more drinks per day Hx Substance Use: No Physical Exam Vital Signs Last Vital Signs Temp 36.7 C 11/14/18 14:18 Pulse 79 11/14/18 14:18 Resp 16 11/14/18 14:18 BP 120/72 11/14/18 14:18 Pulse Ox 95 11/14/18 14:18 Testing Electrocardiogram Date: 11/13/18 Normal sinus rhythm Left anterior fascicular block Septal infarct , age undetermined Possible Lateral infarct , age undetermined Abnormal ECG When compared with ECG of 15-JAN-2012 13:13, Premature atrial complexes are no longer Present Left anterior fascicular block is now Present Borderline criteria for Lateral infarct are now Present Laboratory Results 11/14/18 05:04 11/14/18 05:04 Blood Type A Positive 11/14/18 05:04 Antibody Screen NEGATIVE 11/14/18 05:04 Urine Color Dark Yellow 11/13/18 23:12 Urine Appearance Clear (Clear) 11/13/18 23:12 Urine pH 5.0 (4.5-7.5) 11/13/18 23:12 Ur Specific [place] 1.021 (1.000-1.030) 11/13/18 23:12 Urine Protein 1+ (Negative) H 11/13/18 23:12 Urine Glucose (UA) Negative (Negative) 11/13/18 23:12 Urine Ketones Trace (Negative) H 11/13/18 23:12 Urine Nitrite Negative (Negative) 11/13/18 23:12 Ur Leukocyte Esterase Negative (Negative) 11/13/18 23:12 Urine WBC (Auto) 1-5 /hpf (0-5) 11/13/18 23:12 Urine RBC (Auto) 0-4 /hpf (0-4) 11/13/18 23:12 U Hyaline Cast (Auto) 1-5 /lpf (0-5) 11/13/18 23:12 U Epithel Cells (Auto) 10-20 /lpf (0-5) H 11/13/18 23:12 Urine Bacteria (Auto) Negative (Negative) 11/13/18 23:12
[2018-11-14] MEDS ORDERED: ROCURONIUM BROMIDE 10 MG/ML 5 ML VIAL ONE (14:40)
[2018-11-14] MEDS ORDERED: ONDANSETRON INJ 2 MG/ML 2 ML VIAL ONE ×2 (14:40→15:48)
[2018-11-14] MEDS ORDERED: DEXAMETHASONE SOD INJ 4 MG/ML VIAL ONE (14:57)
[2018-11-14] MEDS ORDERED: ATROPINE SULFATE 0.1 MG/ML 10ML SYR IV PRN (15:14)
[2018-11-14] MEDS ORDERED: LABETALOL HCL IV 5 MG/ML 20ML IV PRN (15:14)
[2018-11-14] MEDS ORDERED: MEPERIDINE HCL 25 MG/ML CARP IV PRN (15:14)
[2018-11-14] MEDS ORDERED: ONDANSETRON INJ 2 MG/ML 2 ML VIAL IV PRN (15:14)
[2018-11-14] MEDS ORDERED: HYDROmorphone INJ 1 MG/ML SYRINGE IV PRN (15:14)
[2018-11-14] MEDS ORDERED: ePHEDrine sulfate 50 MG/ML AMP IV PRN (15:14)
[2018-11-14] MEDS ORDERED: PHENYLEPHRINE 100MCG/ML 5ML SYR IV PRN (15:14)
[2018-11-14] MEDS ORDERED: NEOSTIGMINE METHYLSULFATE 5 MG/5 ML SYR ONE (15:21)
[2018-11-14] MEDS ORDERED: ESMOLOL HCL INJ 10 MG/ML 10ML VIAL IV ONE (15:21)
[2018-11-14] MEDS ORDERED: GLYCOPYRROLATE 0.2 MG/ML VIAL ONE (15:21)
--- NOTE | 2018-11-14 15:45 | Hospitalist Progress Note ---
Date of Service November 14, 2018 Assessment & Plan (1) Acute cholecystitis: Status post laparoscopic cholecystectomy today for source control. Continue IV Unasyn. Continue IV fluids until reliably eating. Replace electrolytes as needed. Bowel regimen. A1c pending. (2) Sepsis: Sepsis secondary to acute cholecystitis. Resuscitated. Plan as above. (3) Asthma: Stable, no wheezing or shortness of breath. Continue Advair and Combivent per home regimen. (4) DVT prophylaxis: SCDs Full code Disposition-recover on the floor, disposition per general surgery. DO [facility] Subjective 72-year-old man status post cholecystectomy after being admitted for sepsis secondary to acute cell cholecystitis. Per who is at the bedside patient has been sick for approximately 5-6 days. He was getting worse to the point of having chills and rigors at home. He has not been eating much secondary to lack of appetite. He is status post lap cholecystectomy today. He reports pain is present but controlled, he is not hungry, he denies nausea. Physical Exam 2 Vital Signs (Past 24 Hours): Last Vital Signs Temp 36.7 C 11/14/18 14:18 Pulse 79 11/14/18 14:18 Resp 16 11/14/18 14:18 BP 120/72 11/14/18 14:18 Pulse Ox 95 11/14/18 14:18 CONSTITUTIONAL: WNWD, vitals as above, generally well-appearing, just arrived from PACU EYES: normal conjuctivae, no scleral icterus ENT: MMM RESPIRATORY: clear to auscultation bilaterally, no crackles, rales or wheezes, normal respiratory effort CARDIOVASCULAR: regular rate and rhythm, S1 and 2 heard without murmurs, gallops or rubs, no JVD, no peripheral edema GASTROINTESTINAL: limited exam as patient just had a surgery. Normal bowel sounds, multiple bandages are clean dry and intact. TYLER drain in place. MUSCULOSKELETAL: strength 5/5 throughout, head is normocephalic and atraumatic , SKIN: warm and dry, surgical wounds abdomen as above NEUROLOGIC: No facial palsy, no dysarthria. CN 2-12 grossly intact, normal cognition, normal speech, no tremor PSYCHIATRIC: alert cooperative and oriented to person, place and time. Results & Data Laboratory Results Short CBC 11/13/18 11/14/18 Range/Units 22:20 05:04 WBC 6.66 10.41 (4.8-10.8) K/uL Hgb 11.9 L 11.7 L (14.0-18.0) g/dL Hct 34.4 L 33.6 L (42-52) % Plt Count 351 353 (130-400) K/uL BMP 11/13/18 11/14/18 22:20 05:04 Sodium 129 L 133 L Potassium 3.1 L 3.4 L Chloride 94 L 100 Carbon Dioxide 25 28 BUN 15 11 Creatinine 1.01 0.80 Glucose 172 H 118 H Calcium 8.0 L 7.9 L Cardiac Enzymes 11/13/18 Range/Units 22:20 Troponin I < 0.015 (0-0.045) ng/ml Liver Function 11/13/18 11/14/18 11/14/18 Range/Units 22:20 05:04 05:04 Total Bilirubin 0.7 0.7 Cancelled (0.2-1) mg/dl Direct Bilirubin 0.3 H Cancelled 0.4 H (0-0.2) mg/dl AST 60 H 75 H Cancelled (15-37) U/L ALT 53 58 Cancelled (12-78) U/L Alkaline Phosphatase 170 H 174 H Cancelled (45-117) U/L Albumin 2.5 L 2.4 L Cancelled (3.4-5.0) gm/dl 11/14/18 Range/Units 09:56 Total Bilirubin 0.8 (0.2-1) mg/dl Direct Bilirubin 0.4 H (0-0.2) mg/dl AST 68 H (15-37) U/L ALT 61 (12-78) U/L Alkaline Phosphatase 167 H (45-117) U/L Albumin 2.3 L (3.4-5.0) gm/dl Urine 11/13/18 Range/Units 23:12 Urine Color Dark Yellow Urine Appearance Clear (Clear) Urine pH 5.0 (4.5-7.5) Ur Specific [place] 1.021 (1.000-1.030) Urine Protein 1+ H (Negative) Urine Glucose (UA) Negative (Negative) Diagnostic Findings FINDINGS: Liver: The liver is normal in top size and slightly heterogeneous in echotexture. There is no intrahepatic biliary ductal dilatation. The main portal vein is patent. Gallbladder: The gallbladder is distended measuring up to 12 cm. The gallbladder wall is thickened, measuring up to 0.5 cm. Pericholecystic fluid is noted and a sonographic Lyons's sign is reportedly present. There are small gallstones and biliary sludge. The common bile duct measures up to 0.8 cm in diameter. Pancreas: Not well visualized due to overlying bowel gas. Right kidney: Survey images of the right kidney demonstrate mild cortical atrophy. There is no hydronephrosis. Ascites: None. IMPRESSION: 1. Cholelithiasis with evidence of acute cholecystitis. 2. There is no intrahepatic biliary ductal dilatation. Medications Administered Current Inpatient Medications Acetaminophen (Tylenol) 325 mg PO Q6H PRN PRN Reason: pain/fever Stop: 12/14/18 03:40 Hydrocodone Bitart/Acetaminophen ([place] 5/325) 1 tab PO Q4H PRN PRN Reason: MODERATE Pain (Scale 4,5,6) Stop: 11/28/18 17:45 Hydrocodone Bitart/Acetaminophen ([place] 5/325) 2 tab PO Q4H PRN PRN Reason: SEVERE Pain (Scale 7,8,9,10) Stop: 11/28/18 17:45 Potassium Chloride/Sodium Chloride (Normal Saline W/20 Meq Kcl) 20 meq in 1, 000 mls @ 60 mls/hr IV .[id number] [facility] Stop: 12/14/18 02:14 Last Infusion: 11/14/18 13:50 Dose: 0 mls/hr Prochlorperazine 5 mg/ Syringe 5 mls @ 5 mls/min IV Q6H PRN PRN Reason: Nausea And Vomiting Stop: 12/14/18 03:40 Lorazepam (Ativan) 0.25 mg in 0.5 mls @ 0.5 mls/min IV Q4H PRN PRN Reason: Anxiety Stop: 12/14/18 03:40 Ampicillin Sodium/Sulbactam Sodium 3,000 mg/ Sodium Chloride 108 mls @ 216 mls/ hr IV Q6H [facility]; Protocol Stop: 11/24/18 07:59 Last Infusion: 11/14/18 14:24 Dose: Infused Ipratropium [place] (Atrovent 0.02% 0.5mg/2.5ml) 0.5 mg INH Q4H PRN PRN Reason: Shortness Of Breath Or Wheezing Stop: 12/14/18 03:40 Levalbuterol HCl (Xopenex 1.25mg/0.5ml Neb) 1.25 mg INH Q4H PRN PRN Reason: Shortness Of Breath Or Wheezing Stop: 12/14/18 03:40 Miscellaneous (Order Awaiting Action) 1 ea N/A QS [facility]HER Stop: 12/15/18 00:00 Miscellaneous Information (Ampicillin/Sulbactam Consult) 1 ea N/A UD PRN PRN Reason: Consult Stop: 12/14/18 06:24 Morphine Sulfate (Morphine Sulfate) 1 mg IV Q3H PRN PRN Reason: MILD Pain (Scale 1,2,3) Stop: 11/28/18 17:45 Morphine Sulfate (Morphine Sulfate) 2 mg IV Q3H PRN PRN Reason: MODERATE Pain (Scale 4,5,6) Stop: 11/28/18 17:45 Morphine Sulfate (Morphine Sulfate) 3 mg IV Q3H PRN PRN Reason: SEVERE Pain (Scale 7,8,9,10) Stop: 11/28/18 17:45 Oxycodone HCl (Roxicodone Immediate Rel) 5 mg PO Q4H PRN PRN Reason: Pain Stop: 11/28/18 03:40 Polyethylene Glycol (Miralax Powder Packet) 17 gm PO DAILY PRN PRN Reason: Constipation Stop: 12/14/18 03:40 Fluticasone/Salmeterol (Advair Diskus 100/50) 1 puffs INH BID [facility] Stop: 12/14/18 08:59 Last Admin: 11/14/18 08:20 Dose: 1 puffs Senna/Docusate Sodium (Senokot S) 1 tab PO QAM [facility] Stop: 12/14/18 03:40 Last Admin: 11/14/18 05:15 Dose: 1 tab
--- NOTE | 2018-11-14 15:54 | Post Operative Brief Note ---
Immediate Post Op Note v1 Date of Surgery November 14, 2018 Pre & Post Diagnosis Operation Date: 11/14/18 12:00 Pre-Op Diagnosis: CHOLECYSTITIS Post-Op Diagnosis: CHOLECYSTITIS Procedure Operation Date: 11/14/18 12:00 Actual Procedures p Laparoscopic Cholecystectomy(Not Applicable) - Dominic Villarreal DO Surgeon Dominic Villarreal DO Senior Qa Analyst erika Short Estimated Blood Loss 50 Findings Consistent with Post-Op Diagnosis
--- NOTE | 2018-11-14 16:01 | Operative Report ---
Post Operative Report Pre & Post Diagnosis Operation Date: 11/14/18 12:00 Pre-Op Diagnosis: CHOLECYSTITIS Post-Op Diagnosis: CHOLECYSTITIS Procedure Operation Date: 11/14/18 12:00 Actual Procedures p Laparoscopic Cholecystectomy(Not Applicable) - Dominic Villarreal DO Surgeon Dominic Villarreal DO Reception Clerk erika Short Estimated Blood Loss 50 Findings See Below gangrenous gallbladder Specimens gallbladder Description of Procedure After informed consent was obtained the patient was taken to the operating room and placed in the supine position. After successful intubation the abdomen was sterilely prepped and draped in usual fashion. A periumbilical incision was made with an 11 blade scalpel and carried down through the soft tissue using electrocautery. The anterior rectus fascia was opened using electrocautery and 2 #0 Vicryl stay sutures were placed. The peritoneum was elevated with hemostats and incised under direct vision using Metzenbaum scissors. A finger sweep was performed and a 12 mm Lion trocar was placed. The abdomen was insufflated to 18 mmHg. The laparoscope was inserted and the abdomen was examined in 360. No gross abnormalities were identified. A subxiphoid 5 mm port and 2 right upper quadrant 5 mm ports were placed under direct vision. The patient was placed in a reverse Trendelenburg position and slightly airplaned to the left. The gallbladder was covered with omentum and when we pulled it off the gallbladder was markedly acutely inflamed. I used a gallbladder needle to drain foul-smelling purulent fluid from it. Once I decompressed it we were then able to grab it and elevated superiorly and laterally. It was a rather difficult dissection due to the gangrenous nature and the severe inflammatory response. The gallbladder was grasped and elevated superiorly and laterally. A [place] dissector was used to take down adhesions around the neck of the gallbladder. The cystic duct was identified and skeletonized. It was clipped twice proximally and once distally and transected using a laparoscopic scissor. In similar fashion the cystic artery was identified and skeletonized clipped and divided. The gallbladder was removed from the gallbladder fossa with electrocautery. It was placed into an Endo Catch bag. Thorough irrigation was performed. At the end of the procedure there was adequate hemostasis and no evidence of any bile leaks. I decided to place a 10 flat Roosevelt-Emmanuel drain into the right upper quadrant and brought it out through 1 of the trochars. It was secured to skin using 0 Vicryl. I also placed Surgicel in the gallbladder bed because of some oozing. A final look around the abdomen showed no other abnormalities. The gallbladder and trochars were all removed and the abdomen was desufflated. The fascia of the camera port was closed using 0 Vicryl in a [id number] fashion. All the wounds were irrigated and closed using 4-0 Monocryl. Marcaine was injected around them for postoperative analgesia and skin glue used as a dressing. The patient was awaken extubated and transferred to recovery in stable condition. My physician's chemical laboratory assistant was present throughout the entire case... helped with prepping the patient. With exposure for trocar placement, as well as retracted the gallbladder throughout the case and also assisted with wound closure and dressing placement. I attest to the content of the Intraoperative Record and any orders documented therein. Any exceptions are noted below.
[2018-11-14] MEDS: fentaNYL citrate 100 MCG/2 ML VIAL IV PRN ×4 (16:31→16:52)
--- NOTE | 2018-11-14 17:22 | Anesthesiology Progress Note ---
Date of Service November 14, 2018 Anesthesia Post Procedure Vital Signs Vital Signs: Temp Pulse Pulse Pulse Resp BP BP 11/14/18 17:16 83 16 11/14/18 17:05 36.7 C 84 16 11/14/18 16:55 85 16 11/14/18 16:45 82 16 11/14/18 16:35 85 16 11/14/18 16:25 83 12 11/14/18 16:14 36.2 C L 89 12 11/14/18 14:18 36.7 C 79 16 11/14/18 07:32 37.2 C 81 18 11/14/18 03:45 36.6 C 83 16 123/67 11/14/18 03:16 80 18 109/57 L 11/14/18 01:21 36.8 C 89 20 115/67 11/14/18 00:30 37.4 C 94 H 20 131/66 11/13/18 23:26 37.8 C H 100 H 100 H 20 135/76 11/13/18 22:24 106 H 20 146/73 H 11/13/18 21:55 37.8 C H 117 H 20 135/75 BP Pulse Ox 11/14/18 17:16 136/69 95 11/14/18 17:05 131/71 95 11/14/18 16:55 138/68 95 11/14/18 16:45 140/63 94 11/14/18 16:35 130/64 94 11/14/18 16:25 139/66 94 11/14/18 16:14 149/69 H 97 11/14/18 14:18 120/72 95 11/14/18 07:32 105/61 93 11/14/18 03:45 92 11/14/18 03:16 93 11/14/18 01:21 93 11/14/18 00:30 93 11/13/18 23:26 100 11/13/18 22:24 91 11/13/18 21:55 95 Pain Intensity Bilateral Abdomen: Pain Intensity: 4 Notes Mental Status: alert / awake / arousable and participated in evaluation Nausea / Vomiting: adequately controlled Pain: adequately controlled Airway Patency, RR, SpO2: stable & adequate BP & HR: stable & adequate Hydration State: stable & adequate Anesthetic Complications: no major complications apparent and Pt Satisfied with anesthetic care
[2018-11-14] MEDS ORDERED: HYDROCODONE/ACETAMOPHEN 5/325MG TAB PO PRN ×2 (17:46)
[2018-11-14] MEDS ORDERED: MoRPHine SULFATE 2 MG/ML CARP IV PRN ×2 (17:46)
[2018-11-15] MEDS: AMPICILLIN/SULBACTAM SOD 3,000 MG in 0.9 % SODIUM CHLORIDE 100 ML IV SCH ×4 (02:00→19:21)
[2018-11-15] MEDS: NSS + 20MEQ KCL 20 MEQ/1,000 ML BAG IV SCH ×2 (02:38→20:47)
[2018-11-15 05:04] LABS: Basophils # (auto) 0.02 K/uL (0-0.2); Basophils % (auto) 0.2 %; Eosinophils # (auto) 0.02 K/uL (0-0.5); Eosinophils % (auto) 0.2 %; Hematocrit (blood only) 31.8 % (42-52); Hemoglobin 10.6 g/dL (14.0-18.0); Immature Granulocytes # (auto) 0.08 K/uL (0.00-0.02); Immature Granulocytes % (auto) 0.7 %; Lymphocytes # (auto) 0.85 K/uL (1.2-3.4); Lymphocytes % (auto) 7.4 %; Mean Corpuscular Hgb Conc 33.3 g/dL (32-36); Mean Corpuscular Volume 89.8 fL (80-100); Mean Platelet Volume 9.5 fL (7.4-10.4); Monocytes # (auto) 0.67 K/uL (0.11-0.59); Monocytes % (auto) 5.8 %; Neutrophils # (auto) 9.85 K/uL (1.4-6.5); Neutrophils % (auto) 85.7 %; Platelet Count 401 K/uL (130-400); RDW Standard Deviation 46.4 fL (36.4-46.3); Red Blood Count 3.54 M/uL (4.7-6.1); White Blood Count 11.49 K/uL (4.8-10.8)
[2018-11-15 05:50] LABS: Albumin Level 2.1 gm/dl (3.4-5.0); BUN Creatinine Ratio 14.5 (10-20); Bilirubin Direct 0.2 mg/dl (0-0.2); Bilirubin,Total 0.5 mg/dl (0.2-1); Calcium 7.5 mg/dl (8.5-10.1); Creatinine Clr Calc Pharmacy 94.9 ml/min; Est GFR (African American) 107.8; Magnesium 2.3 mg/dl (1.8-2.4); Phosphorus 3.2 mg/dl (2.5-4.9); Potassium 3.7 mmol/L (3.5-5.1); Total Protein 5.7 gm/dl (6.4-8.2)
[2018-11-15 06:40] LABS: Estimated Average Glucose 131 mg/dl
--- NOTE | 2018-11-15 08:01 | Anesthesiology Progress Note ---
Date of Service November 15, The patient did not wake up at any point during the procedure. He was extubated after meeting extubation criteria and following commands. In PACU he stated that he remembered being in the operating room after being extubated. I informed him that this was not unexpected. Anesthesia Post Procedure Vital Signs Vital Signs: Temp Pulse Pulse Resp BP Pulse Ox 11/16/18 10:18 37.0 C 80 84 18 128/72 93 11/16/18 06:48 37.0 C 80 18 128/72 93 11/15/18 23:41 36.7 C 84 18 134/72 94 Pain Intensity Bilateral Abdomen: Pain Intensity: 0 Notes Mental Status: alert / awake / arousable and participated in evaluation Patient Amnestic to Procedure: No (Pt. states he "awoke in the middle of procedure and was put back to sleep", i explained to the patient that he may have been deepened at the end of his anesthetic if waking up too quickly, I asked if he wanted the situation looked into any further, he said "no its bound to happen sometimes.") Nausea / Vomiting: adequately controlled Pain: adequately controlled Airway Patency, RR, SpO2: stable & adequate BP & HR: stable & adequate Hydration State: stable & adequate Anesthetic Complications: Pt Satisfied with anesthetic care
[2018-11-15] MEDS: FLUTICASONE/SALMETEROL 100/50 (ADVAIR) 14 PUFF/1 INHALER INH SCH ×2 (08:13→20:47)
[2018-11-15] MEDS: DOCUSATE SODIUM/SENNA 50/8.6MG TAB PO SCH (08:14)
--- NOTE | 2018-11-15 09:04 | Surgery Progress Note ---
Date of Service November 15, 2018 Assessment & Plan (1) Acute cholecystitis: pod 1 doing well. advance diet today...recheck labs tomorrow. poss d/c tomorrow if all goes well. Subjective pt feeling much better today. Physical Exam 2 Vital Signs (Past 24 Hours): Last Vital Signs Temp 36.8 C 11/15/18 06:50 Pulse 84 11/15/18 06:50 Resp 18 11/15/18 06:50 BP 119/67 11/15/18 06:50 Pulse Ox 92 11/15/18 06:50 Physical Exam: alert. nad abdomen: expected tenderness
--- NOTE | 2018-11-15 18:02 | Hospitalist Progress Note ---
Date of Service November 15, 2018 Assessment & Plan (1) Acute cholecystitis: Status post laparoscopic cholecystectomy today for source control. Continue IV Unasyn-will discuss with Surgery regarding deescalation. DC IVF. Replace electrolytes as needed. Bowel regimen. (2) Sepsis: Sepsis secondary to acute cholecystitis. Resuscitated. Plan as above. (3) Asthma: Stable, no wheezing or shortness of breath. Continue Advair and Combivent per home regimen. (4) DVT prophylaxis: SCDs Full code Disposition-recover on the floor, disposition per general surgery. Tosha Cline DO [facility] Hospitalist Subjective +tolerating PO -pain controlled -nausea +flatus -no BM Physical Exam 2 Vital Signs (Past 24 Hours): Last Vital Signs Temp 36.8 C 11/15/18 15:33 Pulse 79 11/15/18 15:33 Resp 20 11/15/18 15:33 BP 125/76 11/15/18 15:33 Pulse Ox 93 11/15/18 15:33 CONSTITUTIONAL: WNWD, vitals as above, generally well-appearing EYES: normal conjuctivae, no scleral icterus ENT: MMM RESPIRATORY: clear to auscultation bilaterally, no crackles, rales or wheezes, normal respiratory effort CARDIOVASCULAR: regular rate and rhythm, S1 and 2 heard without murmurs, gallops or rubs, no JVD, no peripheral edema GASTROINTESTINAL: soft, ND, TTP around incision sites as expected. Normal bowel sounds, multiple bandages are clean dry and intact. TYLER drain in place. MUSCULOSKELETAL: strength 5/5 throughout, head is normocephalic and atraumatic , SKIN: warm and dry, surgical wounds abdomen as above NEUROLOGIC: No facial palsy, no dysarthria. CN 2-12 grossly intact, normal cognition, normal speech, no tremor PSYCHIATRIC: alert cooperative and oriented to person, place and time. Results & Data Laboratory Results Short CBC 11/15/18 Range/Units 04:50 WBC 11.49 H (4.8-10.8) K/uL Hgb 10.6 L (14.0-18.0) g/dL Hct 31.8 L (42-52) % Plt Count 401 H (130-400) K/uL BMP 11/15/18 04:50 Sodium 135 L Potassium 3.7 Chloride 103 Carbon Dioxide 28 BUN 10 Creatinine 0.70 Glucose 114 H Calcium 7.5 L Liver Function 11/15/18 Range/Units 04:50 Total Bilirubin 0.5 (0.2-1) mg/dl Direct Bilirubin 0.2 (0-0.2) mg/dl AST 55 H (15-37) U/L ALT 53 (12-78) U/L Alkaline Phosphatase 126 H (45-117) U/L Albumin 2.1 L (3.4-5.0) gm/dl Medications Administered Current Inpatient Medications Acetaminophen (Tylenol) 325 mg PO Q6H PRN PRN Reason: pain/fever Stop: 12/14/18 03:40 Hydrocodone Bitart/Acetaminophen ([place] 5/325) 1 tab PO Q4H PRN PRN Reason: MODERATE Pain (Scale 4,5,6) Stop: 11/28/18 17:45 Hydrocodone Bitart/Acetaminophen ([place] 5/325) 2 tab PO Q4H PRN PRN Reason: SEVERE Pain (Scale 7,8,9,10) Stop: 11/28/18 17:45 Prochlorperazine 5 mg/ Syringe 5 mls @ 5 mls/min IV Q6H PRN PRN Reason: Nausea And Vomiting Stop: 12/14/18 03:40 Lorazepam (Ativan) 0.25 mg in 0.5 mls @ 0.5 mls/min IV Q4H PRN PRN Reason: Anxiety Stop: 12/14/18 03:40 Ampicillin Sodium/Sulbactam Sodium 3,000 mg/ Sodium Chloride 108 mls @ 216 mls/ hr IV Q6H [facility]; Protocol Stop: 11/24/18 07:59 Last Infusion: 11/16/18 02:12 Dose: Infused Ipratropium [place] (Atrovent 0.02% 0.5mg/2.5ml) 0.5 mg INH Q4H PRN PRN Reason: Shortness Of Breath Or Wheezing Stop: 12/14/18 03:40 Levalbuterol HCl (Xopenex 1.25mg/0.5ml Neb) 1.25 mg INH Q4H PRN PRN Reason: Shortness Of Breath Or Wheezing Stop: 12/14/18 03:40 Miscellaneous (Order Awaiting Action) 1 ea N/A QS [facility] Stop: 12/15/18 00:00 Last Admin: 11/16/18 00:06 Dose: Not Given Miscellaneous Information (Ampicillin/Sulbactam Consult) 1 ea N/A UD PRN PRN Reason: Consult Stop: 12/14/18 06:24 Morphine Sulfate (Morphine Sulfate) 1 mg IV Q3H PRN PRN Reason: MILD Pain (Scale 1,2,3) Stop: 11/28/18 17:45 Morphine Sulfate (Morphine Sulfate) 2 mg IV Q3H PRN PRN Reason: MODERATE Pain (Scale 4,5,6) Stop: 11/28/18 17:45 Morphine Sulfate (Morphine Sulfate) 3 mg IV Q3H PRN PRN Reason: SEVERE Pain (Scale 7,8,9,10) Stop: 11/28/18 17:45 Oxycodone HCl (Roxicodone Immediate Rel) 5 mg PO Q4H PRN PRN Reason: Pain Stop: 11/28/18 03:40 Polyethylene Glycol (Miralax Powder Packet) 17 gm PO DAILY PRN PRN Reason: Constipation Stop: 12/14/18 03:40 Fluticasone/Salmeterol (Advair Diskus 100/50) 1 puffs INH BID [facility] Stop: 12/14/18 08:59 Last Admin: 11/15/18 20:47 Dose: 1 puffs Senna/Docusate Sodium (Senokot S) 1 tab PO QAM [facility] Stop: 12/14/18 03:40 Last Admin: 11/15/18 08:14 Dose: 1 tab
[2018-11-16] MEDS: AMPICILLIN/SULBACTAM SOD 3,000 MG in 0.9 % SODIUM CHLORIDE 100 ML IV SCH ×2 (01:35→08:26)
[2018-11-16 03:33] LABS: Basophils # (auto) 0.01 K/uL (0-0.2); Basophils % (auto) 0.1 %; Eosinophils % (auto) 1.2 %; Hematocrit (blood only) 32.1 % (42-52); Hemoglobin 10.9 g/dL (14.0-18.0); Immature Granulocytes # (auto) 0.06 K/uL (0.00-0.02); Immature Granulocytes % (auto) 0.7 %; Lymphocytes # (auto) 1.09 K/uL (1.2-3.4); Lymphocytes % (auto) 13.4 %; Mean Corpuscular Volume 89.9 fL (80-100); Mean Platelet Volume 9.6 fL (7.4-10.4); Monocytes # (auto) 0.56 K/uL (0.11-0.59); Monocytes % (auto) 6.9 %; Neutrophils % (auto) 77.7 %; Platelet Count 447 K/uL (130-400); RDW Coefficient of Variation 14.2 % (11.5-14.5); RDW Standard Deviation 46.9 fL (36.4-46.3); Red Blood Count 3.57 M/uL (4.7-6.1); White Blood Count 8.12 K/uL (4.8-10.8)
[2018-11-16 03:50] LABS: Albumin Level 2.1 gm/dl (3.4-5.0); Bilirubin Direct 0.2 mg/dl (0-0.2); Calcium 7.5 mg/dl (8.5-10.1); Creatinine Clr Calc Pharmacy 87.4 ml/min; Est GFR (African American) 104.2; Est GFR (Non-African American) 89.9; Potassium 3.7 mmol/L (3.5-5.1)
[2018-11-16 03:53] LABS: Bilirubin,Total 0.4 mg/dl (0.2-1); Total Protein 5.9 gm/dl (6.4-8.2)
[2018-11-16] MEDS: FLUTICASONE/SALMETEROL 100/50 (ADVAIR) 14 PUFF/1 INHALER INH SCH ×2 (07:55→08:25)
[2018-11-16] MEDS: DOCUSATE SODIUM/SENNA 50/8.6MG TAB PO SCH (07:56)
--- NOTE | 2018-11-16 08:13 | Surgery Progress Note ---
Date of Service November 16, 2018 Assessment & Plan (1) Acute cholecystitis: POD 2 lap joselin drain removed WBC normal ok for d/c from surgical standpoint, instructions written Subjective no complaints, wants to go home Physical Exam 2 Vital Signs (Past 24 Hours): Last Vital Signs Temp 37.0 C 11/16/18 06:48 Pulse 80 11/16/18 06:48 Resp 18 11/16/18 06:48 BP 128/72 11/16/18 06:48 Pulse Ox 93 11/16/18 06:48 Gastrointestinal (Abdomen): Inspection/Auscultation: + abdominal surgical incision (clean, dry) and + abdominal surgical drain present (serous drainage 100 cc) Percussion/Palpation: abdomen soft
--- NOTE | 2018-11-18 13:25 | Discharge Summary ---
Date of Service November 18, 2018 Admission HPI Per Admitting Provider History obtained from patient and records. Medical history significant for prostate cancer status post surgery, asthma, past tobacco abuse. Recent ER visit 2011 for near syncope. 1 week history of achy epigastric discomfort going around the belly with nausea , intermittent symptoms, worsened by food intake, low-grade fever at home. Constipation symptoms also noted. No chest pain, no S OB. At the ER, patient received Ceftriaxone and Flagyl for cholecystitis. 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 Admission Exam Per Admitting Provider GENERAL: Comfortable, pleasant, no respiratory distress, obese SKIN: Pallor , warm HEENT: Alopecia, bespectacled, pink palpebral conjunctivae, no ptosis, dry buccal mucosa NECK : Supple, short, no tenderness CHEST : CTA, no tenderness HEART : RRR, no obvious murmurs ABDOMEN: Some distention, right upper quadrant tenderness EXTREMITIES : No LE swelling, no LE tenderness, no other conspicuous deformities noted NEUROLOGIC : Coherent, no facial asymmetry, no other gross focality Principal Diagnosis acute cholecystitis s/p laparoscopic cholecystectomy Discharge Exam CONSTITUTIONAL: WNWD, vitals as above, generally well-appearing EYES: normal conjuctivae, no scleral icterus ENT: MMM RESPIRATORY: clear to auscultation bilaterally, no crackles, rales or wheezes, normal respiratory effort CARDIOVASCULAR: regular rate and rhythm, S1 and 2 heard without murmurs, gallops or rubs, no JVD, no peripheral edema GASTROINTESTINAL: soft, ND, TTP around incision sites as expected. Normal bowel sounds, multiple bandages are clean dry and intact. MUSCULOSKELETAL: strength 5/5 throughout, head is normocephalic and atraumatic , SKIN: warm and dry, surgical wounds abdomen as above NEUROLOGIC: No facial palsy, no dysarthria. CN 2-12 grossly intact, normal cognition, normal speech, no tremor PSYCHIATRIC: alert cooperative and oriented to person, place and time. Discharge Data Allergies Allergy/AdvReac Type Severity Reaction Status Date / Time No Known Allergies Allergy Unverified 11/13/18 22:59 Consultations 11/14/18 01:29 ED Decision to Admit Stat 11/14/18 03:41 Consult General Surgery Routine Procedures Performed Operation Date: 11/14/18 12:00 Actual Procedures p Laparoscopic Cholecystectomy(Not Applicable) - Dominic Villarreal, Ordered Studies 11/13/18 23:45 CT abd pelvis IV con only Urgent 11/14/18 00:40 US gallbladder Stat Hospital Course (1) Acute cholecystitis: (2) Sepsis: (3) Asthma: 72-year-old man presented to the emergency room with pain in his ribs and back as well as loss of balance for the last couple of days. He also had presence of fevers, chills, nausea and vomiting. On arrival to the ER he was febrile with a pulse of 117 normal respirations and blood pressure 135/75. He was actually doing well on room air. Abdominal exam revealed mild epigastric and right upper quadrant tenderness with a positive Lyons sign. Chest x-ray was unremarkable, white blood cell count was within normal limits. Sodium was 129. Troponin was negative. Flu was negative. CT of the abdomen and pelvis revealed gallbladder wall thickening and severe surrounding inflammatory changes concerning for acute cholecystitis. Right upper quadrant ultrasound further confirm cholecystitis and general surgery was consulted. The patient was then made n.p.o. patient was admitted to the hospitalist team and underwent a cholecystectomy the following morning. Empiric ceftriaxone and Flagyl were started and this was switched to IV Unasyn by the hospitalist. Additional IV fluids were given for resuscitation as the patient met sepsis criteria. He continued antibiotics throughout his hospitalization. On 11/14/18 he underwent a laparoscopic cholecystectomy and recovered without complications on the warts. Postoperative diet was advanced to solid food and postoperative pain was controlled. He was discharged in stable condition with close primary care follow-up and general surgery follow-up. In general surgery follow-up. Total Time Total Time Spent Total Time Spent (In Minutes): 60 Total Time Includes: Examination of the Patient, Discharge Planning, Medication Reconciliation and Communication With Other Providers Discharge Plan Discharge Items Patient Disposition: Home - Self-Care Reason For Visit: CHOLECYSTITIS Discharge Diagnosis: acute cholecystitis s/p laparoscopic cholecystectomy Condition: Good Discharge Goals: Decrease discomfort Activity: Per 'Additional Instructions' section Lifting: No more than 10 pounds Bathing: No limitations Driving/Machine Use: Resume 3 days after discharge Non-emergency contact: Surgeon Call non-emergency contact if: you have any medication questions, your pain is not controlled, you have a fever and your temperature is above 101.5 Follow-up/Referrals: Dominic Villarreal, DO [Surgeon] - (Please follow-up with Dr. Villarreal in the General Surgery clinic in 1-2 weeks. Please call the General Surgery clinic at [phone] to schedule this appointment. ) Diet: Regular Addtl Provider Instructions: You may shower, but please do not soak or scrub your incisions. Please do not submerge your incisions in any pools, baths, or hot tubs until your follow-up appointment with Dr. Villarreal. It is recommended that you follow-up with your primary care physician within one week of discharge. It was a pleasure taking care of you! Please call if you have any questions or problems. You can reach a [facility] hospitalist on duty at [facility] 24 hours a day by calling [phone]. Take care of yourself. Tosha Cline, DO [facility] Prescriptions: Continue aspirin 81 mg Tablet,Delayed Release (Dr/Ec) 81 mg PO DAILY RF: 0 fluticasone-salmeterol [Advair Diskus] 100-50 mcg/dose Blister With Device 1 puff INHALATION BID RF: 0 ipratropium-albuterol [Combivent Respimat] 20-100 mcg/actuation Mist 1 puff INHALATION DIRECTED RF: 0 rosuvastatin 10 mg Tablet 10 mg PO DAILY RF: 0 Visit Report Forms: [facility] Portal Stand-Alone Forms: Call Back Authorization, [facility], Opioid Pain Management Krames/Other Patient Handouts: Surgery Prevent DVT After Discharge Orders: Discharge Order (Routine); Ordered 11/16/18 Ordered By: Tosha Cline Admission Data Admit Date/Time: 11/14/18 02:56 Attending Provider: Tosha Cline Admit Provider: Manuel Mancia Primary Care Provider: Lavelle Dia Other Providers: Manuel Mancia ; Dominic Villarreal Service: Surgical Services Other Interventions: Discharge Summary Assessment (RN) Last Done: 11/16/18 10:18 DC Date/Time DO NOT enter until pt leaves facility: 11/16/18 11:10
== END 2018-11-16 11:10 | disposition home or self-care (01) | DRG 854 ==
LOC: ED 21:52 → 3E 11-14 02:56
DX: Z85.46 Personal history of malignant neoplasm of prostate; E87.1 Hypo-osmolality and hyponatremia; R73.9 Hyperglycemia, unspecified; A41.9 Sepsis, unspecified organism; Z87.891 Personal history of nicotine dependence; J45.909 Unspecified asthma, uncomplicated; K81.0 Acute cholecystitis; Z90.79 Acquired absence of other genital organ(s); E87.6 Hypokalemia; K59.00 Constipation, unspecified; D64.9 Anemia, unspecified

== ENCOUNTER 2022-12-05 06:52 | Inpatient (IN) ==
[2022-12-05] MEDS ORDERED: fentaNYL citrate 100 MCG/2 ML VIAL ONE (07:23)
[2022-12-05] MEDS ORDERED: niCARdipine HCL INJ 2.5 MG/ML 10 ML AMP ONE (07:23)
[2022-12-05] MEDS ORDERED: NITROGLYCERIN/D5W 100MCG/ML 20ML SYR ONE (07:23)
[2022-12-05] MEDS ORDERED: MIDAZOLAM HCL 1 MG/ML 2ML VIAL ONE (07:23)
[2022-12-05] MEDS ORDERED: HEPARIN (PORCINE) 1000 UNIT/ML 10 ML (CATH LAB USE ONLY) ONE (07:23)
--- NOTE | 2022-12-05 07:48 | Pre Anesthesia Assessment ---
Date of Service December 05, 2022 Pre Sedation Assessment Vital Signs Temp Pulse Resp BP Pulse Ox O2 Del Method 12/05/22 07:08 36.8 C 68 16 153/87 H 97 Room Air Pre-Sedation Airway Assessment Smoking Status: Former smoker Notes The planned sedation has been discussed with the patient. Informed Consent was obtained. I have identified the patient, determined the appropriateness of sedation and have assessed the patient immediately prior to the procedure. All medicine(s) and interventions are by my order.
--- NOTE | 2022-12-05 07:48 | History & Physical Bridge Note ---
Date of Service December 05, 2022 History & Physical Bridge Note I have examined the patient, reviewed the History & Physical and in the interval since the performance of the History & Physical I have noted the following changes of clinical significance: no changes noted I have explained the risk, benefit and intent of the procedure to the patient and he is willing to proceed.
[2022-12-05] MEDS ORDERED: SODIUM CHLORIDE 0.9% 1000ML 1,000 ML IV SCH (08:00)
[2022-12-05] MEDS ORDERED: LIDOCAINE 1% LOCAL 20 ML VIAL ONE (08:21)
--- NOTE | 2022-12-05 09:02 | Post Anesthesia Assessment ---
Date of Service December 05, 2022 Post Sedation Assessment Vital Signs Temp Pulse Resp BP Pulse Ox O2 Del Method 12/05/22 07:08 36.8 C 68 16 153/87 H 97 Room Air Discharge Sedation Level of Care: Fast Track Phase II Post Sedation Plan On clinical assessment, the patient appears to have tolerated the sedation without complications. Patient is recovering as anticipated. Patient will continue to be monitored by nursing and may be discharged when sedation discharge criteria are met per below protocol. Upon Completions of procedure up to 15 minutes continue every 5 minute vital signs and the P.A.R. score; then discharge to a Phase I or Fast Track to Phase II per the following guidelines: * Discharge Patient to appropriate Phase II area if PAR is 8 or greater or return to pre- procedure baseline. The post - procedure orders will be as directed. * If PAR score is less than 8 or not return to pre-procedure baseline then patient will follow Phase I monitoring till PAR is reached for Phase II. The Phase I may be done in procedure room or may call to secure a Phase I area. * If naloxone or flumazenil are used for reversal, hold in Phase I for con tinued monitoring from when last reversal dose was given for a minimum of 60 minutes or longer pending the nurse and/or physician discretion of patient condition before discharge to Phase II. Please call the Sedation Physician to re-evaluate and complete post-note for discharge to Phase II area. Do NOT discharge from procedure sedation or Phase 1 until post- sedation evaluation note is complete by procedure /sedation MD Sedation Discharge Instructions to be given to the patient at discharge to home.
--- NOTE | 2022-12-05 09:16 | Cardiac Catheterization ---
Date of Service December 05, 2022 Cardiac Cath Report Cardiac Cath Report Procedure: 1. Left heart catheterization 2. Coronary angiography 3. Left ventriculogram History: This is a 76-year-old male patient with no prior history of heart disease. He had classic angina symptoms with exertion and underwent an exercise stress echocardiogram that was abnormal. He was referred for cardiac catheterization. Procedure summary: After informed consent was obtained. The patient was brought to the cardiac catheterization lab where he was prepped and draped in the usual manner for right transradial approach. Unfortunately, access even using ultrasound was not possible from the right radial approach and therefore we switched to a right transfemoral approach where we completed the heart catheterization. We used 5 [place]uran preformed diagnostic catheters and a 5 [place]uran pigtail catheter. Following the procedure the arterial site was closed utilizing the minx device. The patient was then taken to the holding area of the Interlocking Pavement Installer in stable condition. ACC data: Start time 8:10 AM End time 8:51 AM Opening aortic pressure 152/70 Closing aortic pressure 159/73 Left ventricular pressure 148/19 Sedation 1 mg intravenous Versed IV fluid 101 cc normal saline Contrast 88 cc Fluoroscopy time 3.9 minutes Radiation 1026 mGy DAP 109.31 Gy/cm Right dominant system AUC score 9 Coronary angiography: Selective injections of the left coronary system reveal a subtotaled left main trunk distally into the left circumflex and LAD. The left circumflex artery consists of 2 large marginal branches. The remainder the left circumflex system is patent. The LAD extends all the way around the apex of the heart. The LAD gives off several medium to small diagonal branches. There are minor luminal regularities in the mid segment of the LAD but the remainder the LAD is widely patent. Selective injections into the right coronary artery revealed to be dominant. Right coronary artery has luminal irregularities but is widely patent. Left ventriculogram: The left ventricle is of normal size with normal systolic function. Mitral valve is competent. The aortic root and ascending aorta have normal morphology and diameter. Summary: Severe coronary artery disease involving the left main trunk, proximal LAD and proximal left circumflex arteries Recommendations: Recommendations are for surgical review the patient's cardiac catheterization results.
[2022-12-05] MEDS ORDERED: NITROGLYCERIN SL 0.4 MG/TAB TAB SL PRN (13:06)
--- NOTE | 2022-12-05 13:06 | History & Physical Report ---
Date of Service December 05, 2022 Assessment & Plan (1) CAD (coronary artery disease): Plan: Chest discomfort with shortness of breath on exertion Positive stress echo on last Status post cardiac cath today showing -Severe coronary artery disease involving left main trunk, proximal LAD and proximal left circumflex arteries Will need CABG Kosher Inspector has been trying to talk to the cardiac surgeon and transfer the patient in [place] Patient remains asymptomatic in the telemetry unit He was [facility] the [facility] [place] for proposed CABG. He has transferred to [facility] in stable medical condition (2) Hypertension: Plan: Blood pressure is controlled (3) Hyperlipidemia: Plan: Continue current statin (4) Asthma: Plan: His asthma remains controlled Takes Advair and Combivent occasionally (5) Prostate cancer: Plan: No acute issue DVT prophylaxis-subcu heparin CODE STATUS Full Admission and Anticipated Discharge Date Admission Date: December 05, 2022 History of Present Illness Chief Complaint: S/p cardiac cath with documented left main disease Primary Care Provider: Duke Foreman MD Is a 76-year-old obese male with significant past medical history of controlled asthma hypertension and hyperlipidemia apparently has had a positive stress echo last for ongoing chest symptoms including shortness of breath with physical activity but no chest pain. He underwent cardiac cath this morning and was noted to have severe coronary disease involving the left main trunk, proximal LAD and proximal left circumflex arteries. He remains asymptomatic following the procedure. He will be transferred to [place] when he is accepted for CABG and a bed is available. Kosher Inspector has been working on that. He denies any symptoms of chest pain, palpitation or shortness of breath. No abdominal pain nausea no vomit. And no wheezing. Allergies Allergy/AdvReac Type Severity Reaction Status Date / Time No Known Allergies Allergy Verified 12/05/22 07:15 Home Medications Medication Instructions Recorded Confirmed Type aspirin 81 mg tablet,delayed 81 mg PO DAILY 11/13/18 12/05/22 History release rosuvastatin 10 mg tablet 10 mg PO DAILY 11/13/18 12/05/22 History fluticasone 100 mcg-salmeterol 50 1 ea inhalation DAILY 02/28/21 12/05/22 History mcg/dose blistr powdr for inhalation (Advair Diskus) ipratropium 20 mcg-albuterol 100 1 puff inhalation DAILY 02/28/21 12/05/22 Hist ory mcg/actuation mist for inhalation (Combivent Respimat) losartan 25 mg tablet 25 mg PO DAILY 12/05/22 12/05/22 History metoprolol succinate 25 mg 25 mg PO DAILY 12/05/22 12/05/22 History tablet,extended release 24 hr omega-3 fatty acids 1,000 mg PO DAILY 12/05/22 12/05/22 History Past Med/Surg History Medical History (Updated 12/05/22 @ 13:03 by Andrea Horton MD) Asthma Asthma Deviated nasal septum Hyperlipidemia Hyperlipidemia Prostate cancer (08/15/16) Sepsis Surgical History (Updated 02/28/21 @ 09:12 by Marisa Espitia, RN) H/O rotator cuff surgery Bilateral History of carpal tunnel surgery Bilateral Hx of cholecystectomy S/P prostatectomy 10/20/16 Family History (Updated 02/28/21 @ 09:15 by Marisa Espitia, RN) Mother , 93yo Natural with unknown cause Alzheimer disease Father , 57yo Lung cancer Brother No problems noted. Brother Accident Brother Myocardial infarction Sister No problems noted. Sister No problems noted. Son No problems noted. Son No problems noted. Son No problems noted. Son No problems noted. Social History (Updated 02/28/21 @ 09:18 by Marisa Espitia, CORINE) Smoking Status: Former smoker Cigarettes Per Day: 1 PPD x 10yrs; Hx Alcohol Use: Yes Alcohol type: beer, wine and hard liquor Hx Substance Use: No Preferred Language: Turkmen Communication Ability: Effective Visual Impairment: No Limitations Hearing Ability: Normal Binder Lockstitch Required: No Beliefs That Will Affect Care: None marital status: Current Living Situation: Spouse current occupational status: retired current occupation: Retired as [employer] Feels Safe at Home: Yes Safety Concerns: Feels Safe At This Time caffeine: Yes (2-3 cups/day) during the past year weight has: remained stable Review of Systems Review of Systems: All systems reviewed and are unremarkable except as noted below Physical Exam Physical Exam: Lying in bed comfortably Constitutional: well developed, well nourished and + obese; not ill appearing Eyes: PERRL, conjunctivae normal, anicteric sclerae ENMT: external ear and nose normal, oropharynx normal Neck: trachea midline, no thyromegaly Respiratory: no respiratory distress Auscultation: lungs clear to auscultation bilaterally Cardiovascular: Rate/Rhythm: regular rate and regular rhythm; not tachycardic Heart Sounds: normal S1, normal S2 and + murmur (2/6 ESM over precordium) Extremities: no edema Gastrointestinal (Abdomen): Inspection/Auscultation: normal bowel sounds; abdomen not distended Percussion/Palpation: abdomen soft; abdomen nontender Musculoskeletal: No acute arthritis involving any joint Neurologic: normal touch/pain/proprioception and moves all extremities; no focal motor deficits Psychiatric: A+Ox3, euthymic affect Lymphatic: no cervical or axillary lymphadenopathy Results & Data Results & Data ([facility]) Vital Signs (Past 12 Hours) Vital Signs Temp Pulse Resp BP Pulse Ox O2 Del Method 12/05/22 11:44 68 20 125/78 95 Room Air 12/05/22 11:30 69 20 134/67 95 Room Air 12/05/22 11:15 69 20 120/71 95 Room Air 12/05/22 11:00 65 20 126/67 95 Room Air 12/05/22 10:45 72 20 124/69 94 Room Air 12/05/22 10:30 67 20 107/67 94 Room Air 12/05/22 10:15 67 20 128/69 93 Room Air 12/05/22 10:00 70 20 127/68 97 Room Air 12/05/22 09:45 66 20 127/76 95 Room Air 12/05/22 09:30 59 L 20 142/72 H 97 Room Air 12/05/22 09:15 66 20 129/65 98 Room Air 12/05/22 09:00 72 20 151/89 H 98 Room Air 12/05/22 07:08 36.8 C 68 16 153/87 H 97 Room Air Laboratory Results Current Inpatient Medications Albuterol (Albuterol Hfa 8 Gm Inhaler (Combivent Respimat P&T Subs)) 1 puffs INH QIDR PRN; Protocol PRN Reason: Wheezing Stop: 01/04/23 13:12 Aspirin (Aspirin 81 Mg Ectab) 81 mg PO DAILY ESTHER Stop: 01/05/23 08:59 Fish Oil ([place]-3 (Purified Fish Oil) 1 Gm Cap) 1 gm PO DAILY ESTHER Stop: 01/05/23 08:59 Fluticasone/Vilanterol (Fluticasone/Vilanterol 100/25mcg 14 Puffs/Inhaler) 1 puffs INH DAILY [facility]; Protocol Stop: 01/05/23 08:59 Heparin Sodium (Porcine) (Heparin Sod 5,000 Unit/0.5 Ml Vial) 5,000 units SQ Q8 ESTHER Stop: 01/04/23 13:59 Last Admin: 12/05/22 13:27 Dose: 5,000 units Sodium Chloride (Nss 1000ml) 1,000 mls @ 82 mls/hr IV .[id number] [facility] Stop: 01/04/23 07:59 Last Admin: 12/05/22 12:54 Dose: Not Given Ipratropium [place] (Ipratropium Hfa Inhaler (Combivent Respimat P&T Subs)) 1 puffs INH QIDR PRN; Protocol PRN Reason: Wheezing Stop: 01/04/23 13:12 Losartan Potassium (Losartan Potassium 25 Mg Tab) 25 mg PO DAILY [facility] Stop: 01/05/23 08:59 Metoprolol Succinate (Metoprolol Succ 25mg Ext Rel Tab) 25 mg PO DAILY [facility] Stop: 01/04/23 13:14 Last Admin: 12/05/22 13:26 Dose: 25 mg Nitroglycerin (Nitroglycerin Sl 0.4 Mg/Tab Tab) 0.4 mg SL PRN PRN PRN Reason: Chest Pain Stop: 01/04/23 13:05 Rosuvastatin Calcium (Rosuvastatin Calcium 10 Mg Tab) 10 mg PO DAILY [facility] Stop: 01/05/23 08:59 Diagnostic Findings Current Inpatient Medications Medications Administered Current Inpatient Medications Albuterol (Ipratropium [place]/Albuterol Respimat Inh) 1 puffs INH DAILY [facility] Stop: 01/05/23 08:59 Aspirin (Aspirin 81 Mg Ectab) 81 mg PO DAILY [facility] Stop: 01/05/23 08:59 Sodium Chloride (Nss 1000ml) 1,000 mls @ 82 mls/hr IV .[id number] [facility] Stop: 01/04/23 07:59 Last Admin: 12/05/22 12:54 Dose: Not Given Losartan Potassium (Losartan Potassium 25 Mg Tab) 25 mg PO DAILY [facility] Stop: 01/05/23 08:59 Metoprolol Succinate (Metoprolol Succ 25mg Ext Rel Tab) 25 mg PO DAILY [facility] Stop: 01/04/23 12:50 Non-Formulary Medication ([place]-3 Fatty Acids) 1,000 mg PO DAILY [facility] Stop: 01/05/23 08:59 Rosuvastatin Calcium (Rosuvastatin Calcium 10 Mg Tab) 10 mg PO DAILY [facility] Stop: 01/05/23 08:59 Fluticasone/Salmeterol (Fluticasone/Salmeterol 100/50 (Advair) 14 Puff/1 Inhaler) 1 puffs INH DAILY [facility] Stop: 01/05/23 08:59 Code Status & VTE Plan VTE Prophylaxis Plan VTE Prophylaxis will be ordered: No Reason for no VTE drug order: Treatment not indicated
[2022-12-05] MEDS ORDERED: Albuterol HFA 8 GM Inhaler (Combivent Respimat P&T Subs) INH PRN (13:13)
[2022-12-05] MEDS ORDERED: Ipratropium HFA Inhaler (Combivent Respimat P&T Subs) INH PRN (13:13)
[2022-12-05] MEDS ORDERED: METOPROLOL SUCC 25MG EXT REL TAB PO SCH (13:15)
[2022-12-05] MEDS ORDERED: HEPARIN SOD 5,000 UNIT/0.5 ML VIAL SQ SCH (14:00)
[2022-12-05 15:40] VITALS: TEMP 98.2
--- NOTE | 2022-12-05 17:32 | Discharge Summary ---
Date of Service December 05, 2022 Admission HPI Per Admitting Provider Is a 76-year-old obese male with significant past medical history of controlled asthma hypertension and hyperlipidemia apparently has had a positive stress echo last for ongoing chest symptoms including shortness of breath with physical activity but no chest pain. He underwent cardiac cath this morning and was noted to have severe coronary disease involving the left main trunk, proximal LAD and proximal left circumflex arteries. He remains asymptomatic following the procedure. He will be transferred to [place] when he is accepted for CABG and a bed is available. [employer] Employee has been working on that. He denies any symptoms of chest pain, palpitation or shortness of breath. No abdominal pain nausea no vomit. And no wheezing. Admission Exam Per Admitting Provider Physical Exam: Lying in bed comfortably Constitutional: well developed, well nourished and + obese; not ill appearing Eyes: PERRL, conjunctivae normal, anicteric sclerae ENMT: external ear and nose normal, oropharynx normal Neck: trachea midline, no thyromegaly Respiratory: no respiratory distress Auscultation: lungs clear to auscultation bilaterally Cardiovascular: Rate/Rhythm: regular rate and regular rhythm; not tachycardic Heart Sounds: normal S1, normal S2 and + murmur (2/6 ESM over precordium) Extremities: no edema Gastrointestinal (Abdomen): Inspection/Auscultation: normal bowel sounds; abdomen not distended Percussion/Palpation: abdomen soft; abdomen nontender Musculoskeletal: No acute arthritis involving any joint Neurologic: normal touch/pain/proprioception and moves all extremities; no focal motor deficits Psychiatric: A+Ox3, euthymic affect Lymphatic: no cervical or axillary lymphadenopathy Principal Diagnosis Multivessel CAD for CABG Discharge Exam Lying in bed comfortably Constitutional well developed, well nourished and + obese; not ill appearing Eyes PERRL, conjunctivae normal, anicteric sclerae ENMT external ear and nose normal, oropharynx normal Neck trachea midline, no thyromegaly Respiratory no respiratory distress Auscultation: lungs clear to auscultation bilaterally Cardiovascular Rate/Rhythm: regular rate and regular rhythm; not tachycardic Heart Sounds: normal S1, normal S2 and + murmur (2/6 ESM over precordium) Extremities: no edema Gastrointestinal (Abdomen) Inspection/Auscultation: normal bowel sounds; abdomen not distended Percussion/Palpation: abdomen soft; abdomen nontender Neurologic normal touch/pain/proprioception and moves all extremities; no focal motor deficits Psychiatric A+Ox3, euthymic affect Lymphatic no cervical or axillary lymphadenopathy Discharge Data Allergies Allergy/AdvReac Type Severity Reaction Status Date / Time No Known Allergies Allergy Verified 12/05/22 07:15 Consultations 12/05/22 17:08 Burn CD for patient Stat Procedures Performed Operation Date: 12/05/22 08:00 Actual Procedures p Cineradiography w/Routine Exam - Rafael Zuluaga, p Cath, Left with Cors and Vent - Rafael Zuluaga, DO s Ultrasound Vascular Access - Rafael Zuluaga DO Ordered Studies 12/05/22 06:27 CL Cath Imgs for PACS use only Routine Hospital Course (1) CAD (coronary artery disease): Chest discomfort with shortness of breath on exertion Positive stress echo on last Status post cardiac cath today showing -Severe coronary artery disease involving left main trunk, proximal LAD and proximal left circumflex arteries Will need CABG [employer] Employee has been trying to talk to the cardiac surgeon and transfer the patient in [place] Patient remains asymptomatic in the telemetry unit He was accepted to the [facility] in [place] for proposed CABG. He has transferred to [facility] in stable medical condition (2) Hypertension: Blood pressure is controlled (3) Hyperlipidemia: Continue current statin (4) Asthma: His asthma remains controlled Takes Advair and Combivent occasionally (5) Prostate cancer: No acute issue DVT prophylaxis-subcu heparin CODE STATUS Full Total Time Total Time Spent Total Time Spent (In Minutes): 35 minutes Discharge Plan Discharge Items Patient Disposition: Transfer Acute Care Hospital Reason For Visit: LEFT MAIN DISEASE-NEEDS CABG Discharge Diagnosis: Multivessel CAD for CABG Condition on Discharge: Fair Activity: Resume your previous activity Non-emergency contact: Primary Care Provider Call non-emergency contact if: you have any medication questions and your symptoms worsen Follow-up/Referrals: Duke Foreman MD [Primary Care Provider] - Diet: Heart Healthy Addtl Attending Provider Instructions: The patient was transferred to [place] for CABG In paper all of his home medications were continued In reality he is getting the following medicine in the hospital- Current Inpatient Medications Albuterol (Albuterol Hfa 8 Gm Inhaler (Combivent Respimat P&T Subs)) 1 puffs INH QIDR PRN; Protocol PRN Reason: Wheezing Stop: 01/04/23 13:12 Aspirin (Aspirin 81 Mg Ectab) 81 mg PO DAILY [facility] Stop: 01/05/23 08:59 Fish Oil (Stone-3 (Purified Fish Oil) 1 Gm Cap) 1 gm PO DAILY [facility] Stop: 01/05/23 08:59 Fluticasone/Vilanterol (Fluticasone/Vilanterol 100/25mcg 14 Puffs/Inhaler) 1 puffs INH DAILY [facility]; Protocol Stop: 01/05/23 08:59 Heparin Sodium (Porcine) (Heparin Sod 5,000 Unit/0.5 Ml Vial) 5,000 units SQ Q8 [facility] Stop: 01/04/23 13:59 Last Admin: 12/05/22 13:27 Dose: 5,000 units Sodium Chloride (Nss 1000ml) 1,000 mls @ 82 mls/hr IV .[id number] [facility] Stop: 01/04/23 07:59 Last Admin: 12/05/22 12:54 Dose: Not Given Ipratropium [place] (Ipratropium Hfa Inhaler (Combivent Respimat P&T Subs)) 1 puffs INH QIDR PRN; Protocol PRN Reason: Wheezing Stop: 01/04/23 13:12 Losartan Potassium (Losartan Potassium 25 Mg Tab) 25 mg PO DAILY [facility] Stop: 01/05/23 08:59 Metoprolol Succinate (Metoprolol Succ 25mg Ext Rel Tab) 25 mg PO DAILY [facility] Stop: 01/04/23 13:14 Last Admin: 12/05/22 13:26 Dose: 25 mg Nitroglycerin (Nitroglycerin Sl 0.4 Mg/Tab Tab) 0.4 mg SL PRN PRN PRN Reason: Chest Pain Stop: 01/04/23 13:05 Rosuvastatin Calcium (Rosuvastatin Calcium 10 Mg Tab) 10 mg PO DAILY [facility] Stop: 01/05/23 08:59 Pending Studies at Discharge: No Stand-Alone Forms: My [facility] Skilled Items Patient informed of condition?: Yes DNR: No Discharge Level of Care: Other Communicable Disease: No Discharge Prognosis: Stable Lines: Peripheral IV Urinary Catheter: No Medications and DC Order Prescriptions: Continued aspirin 81 mg Tablet,Delayed Release (Dr/Ec) 81 mg PO DAILY rosuvastatin 10 mg Tablet 10 mg PO DAILY fluticasone propion-salmeterol [Advair Diskus] 100-50 mcg/dose blister with device 1 ea INHALATION DAILY Combivent Respimat 20-100 mcg/actuation mist 1 puff INHALATION DAILY losartan 25 mg Tablet 25 mg PO DAILY metoprolol succinate 25 mg Tablet Extended Release 24 Hr 25 mg PO DAILY Stone 3 Capsule 1,000 mg PO DAILY Discharge Orders: Discharge Order (Routine); Ordered 12/05/22 Ordered By: Andrea Horton Admission Data Admit Date/Time: 12/05/22 11:41 Attending Provider: Andrea Horton Admit Provider: Andrea Horton Primary Care Provider: Duke Foreman
[2022-12-05 18:03] VITALS: O2SAT 95
[2022-12-05 18:05] VITALS: BP 125/78; PULSE 65
[2022-12-06] MEDS ORDERED: OMEGA-3 (PURIFIED FISH OIL) 1 GM CAP PO SCH (09:00)
[2022-12-06] MEDS ORDERED: IPRATROPIUM BROMIDE/ALBUTEROL respimat INH INH SCH (09:00)
[2022-12-06] MEDS ORDERED: LOSARTAN POTASSIUM 25 MG TAB PO SCH (09:00)
[2022-12-06] MEDS ORDERED: FLUTICASONE/VILANTEROL 100/25MCG 14 PUFFS/INHALER INH SCH (09:00)
[2022-12-06] MEDS ORDERED: ASPIRIN 81 MG ECTAB PO SCH (09:00)
[2022-12-06] MEDS ORDERED: ROSUVASTATIN CALCIUM 10 MG TAB PO SCH (09:00)
== END 2022-12-05 18:31 | disposition short-term general hospital (02) | DRG 287 ==
LOC: CC 06:52 → 2E 11:41
DX: I25.118 Atherosclerotic heart disease of native coronary artery with other forms of angina pectoris; I10 Essential (primary) hypertension; J45.909 Unspecified asthma, uncomplicated; E78.00 Pure hypercholesterolemia, unspecified; C61 Malignant neoplasm of prostate